=== PATIENT | female | born 1975 | race Caucasian/White ===

== ENCOUNTER 2023-10-20 10:08 | Outpatient (OUT) | payer SELFPAY ==
[2023-10-20 10:42] LABS: Basophils Percent Auto 0.7 % (0.2-2.0); Eosinophils Percent Auto 0.2 % (0.9-7.0); Hematocrit 39.9 % (36.0-48.0); Hemoglobin 12.7 g/dL (12.0-16.0); Immature Granulocytes Abs Auto 0.01 10^3/uL (0.00-0.03); Immature Granulocytes Pct Auto 0.2 % (0.0-0.5); Lymphocytes Absolute Auto 1.7 10^3/uL (1.2-3.8); Lymphocytes Percent Auto 30.8 % (20.5-60.0); Mean Corpuscular HGB Conc 31.8 g/dL (29.9-35.2); Mean Corpuscular Hemoglobin 27.1 pg (26.7-34.0); Mean Corpuscular Volume 85.3 fL (81.0-99.0); Mean Platelet Volume 9.4 fL (9.5-13.5); Monocytes Absolute Auto 0.3 10^3/uL (0.3-0.8); Monocytes Percent Auto 5.3 % (1.7-12.0); Neutrophils Absolute Auto 3.4 10^3/uL (1.4-6.5); Neutrophils Percent Auto 62.8 % (43.0-75.0); Platelet Count 307 10^3/uL (150-450); Red Blood Count 4.68 10^6/uL (4.20-5.40); Red Cell Distribution Width 13.9 % (11.0-15.0); White Blood Count 5.4 10^3/uL (4.0-11.0)
[2023-10-20 11:10] LABS: Alanine Aminotransferase 32 U/L (14-59); Albumin Globulin Ratio 0.9; Albumin Level 3.4 g/dL (3.4-5.0); Alkaline Phosphatase 111 U/L (46-116); Anion Gap 11.7; Aspartate Amino Transferase 17 U/L (15-37); BUN Creatinine Ratio 13.6; Bilirubin Total 0.1 mg/dL (0.2-1.0); Calcium 8.4 mg/dL (8.5-10.1); Carbon Dioxide 28.8 mmol/L (21.0-32.0); Chloride 105 mmol/L (98-107); Cholesterol 188 mg/dL (<=200); Estimated GFR (African America >60 (>=60); Estimated GFR (Non-African Ame >60 (>=60); Free T3 2.06 pg/mL (2.18-3.98); Glucose 107 mg/dL (74-106); HDL Cholesterol 47 mg/dL (40-60); Potassium 4.5 mmol/L (3.5-5.1); Sodium 141 mmol/L (136-145); Thyroid Stimulating Hormone 2.903 uIU/mL (0.358-3.740); Total Protein 7.4 g/dL (6.4-8.2); Triglycerides 160 mg/dL (<=150)
[2023-10-20 11:26] LABS: Estimated Average Glucose 123 mg/dL; Glycohemoglobin A1C 5.9 % (4.5-6.2)
== END 2023-10-20 10:09 | disposition home or self-care (01) ==
LOC: LAB 10:12
PROVIDERS: PCP Family Medicine; Visit Provider Family Medicine
DX: Z00.00 Encounter for general adult medical examination without abnormal findings (principal); E78.5 Hyperlipidemia, unspecified; R73.09 Other abnormal glucose; Z12.12 Encounter for screening for malignant neoplasm of rectum; D64.9 Anemia, unspecified
CPT/HCPCS: 36415; 80053; 80061; 83036; 83540; 84436; 84443; 84481; 85025

== ENCOUNTER 2024-10-19 09:13 | Outpatient (OUT) | payer BC, SELFPAY ==
--- OUTSIDE RECORDS SUMMARY | 2024-10-19 09:24 | XMS_ITS | CCD ---
Author Organization [facility] CliniSyfl Care Team Providers Care Bi Data Modeler Name Role Phone PHYSICIAN, DEFAULT Unavailable Unavailable PHYSICIAN, DEFAULT Unavailable Unavailable BINU, DR POZO Admitting Unavailable BINU, DR OPZO Attending Unavailable JULIOY, DR POZO Primary Care Unavailable BINU, DR POZO Primary Care Unavailable BARI, GINNY Admitting Unavailable MYAH HURTADO Consulting Unavailable BARI, GINNY Attending Unavailable ANDREW HARRY Consulting Unavailable BARI, GINNY Attending Unavailable KYARA, DR MARYLIN Ruiz Consulting Unavailable GINNY CANDELARIA Admitting Unavailable BINU, DR POZO Primary Care Unavailable GINNY CANDELARIA Consulting Unavailable BINU, DR POZO Primary Care Unavailable BINU, DR POZO Admitting Unavailable HOY, DR POZO Attending Unavailable HOY, DR POZO Consulting Unavailable JULIOY, DR POZO Admitting Unavailable HOY, DR POZO Attending Unavailable HOY, DR POZO Consulting Unavailable BINU, DR POZO Primary Care Unavailable Allergies Allergy Classification Reported Allergen(s) Allergy Type Date of Onset Reaction(s) Facility (2 sources) diazePAM Drug Allergy 06-10-2016 [facility] (2 sources) Iodine (And Iodine Containting Drugs) Drug allergy (disorder) 06-10-2016 [facility] (2 sources) Penicillins Drug allergy (disorder) 01-02-2016 [facility] Problems Problem Classification Problem Date Documented Date Episodic/Chronic Anxiety disorders (1 source) Anxiety disorder, unspecified; Translations: [ANXIETY DISORDER UNSPECIFIED] Onset: 3 Chronic Cardiac dysrhythmias (4 sources) Palpitations; Translations: [PALPITATIONS] Onset: 3 Episodic Conditions associated with dizziness or vertigo (1 source) Dizziness and giddiness; Translations: [DIZZINESS AND GIDDINESS] Onset: 3 Episodic Deficiency and other anemia (1 source) Anemia, unspecified; Translations: [ANEMIA UNSPECIFIED] Onset: 3 Episodic Diabetes mellitus without complication (1 source) Type 2 diabetes mellitus without complications; Translations: [TYPE 2 DM WITHOUT COMPLICATIONS] Onset: 3 Chronic Diabetes mellitus without complication (1 source) Other abnormal glucose; Translations: [OTHER ABNORMAL GLUCOSE] Onset: 3 Episodic Disorders of lipid metabolism (1 source) Pure hypercholesterolemia, unspecified; Translations: [PURE HYPERCHOLESTEROLEMIA UNSPEC] Onset: 3 Chronic Menopausal disorders (1 source) Hormone replacement therapy; Translations: [HORMONE REPLACEMENT THERAPY] Onset: 3 Episodic Nausea and vomiting (1 source) Nausea with vomiting, unspecified; Translations: [NAUSEA WITH VOMITING UNSPECIFIED] Onset: 3 Episodic Other aftercare (1 source) 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; Translations: [SENIOR CARE USE ORAL HYPOGLYCEMIC DX] Onset: 3 Episodic Other aftercare (1 source) Other alf (current) drug therapy; Translations: [OTH RESPIRATORY MANAGER CURRENT DRUG THERAPY] Onset: 3 Episodic Other nervous system disorders (1 source) Carpal tunnel syndrome, right upper limb; Translations: [CARPAL TUNNEL SYND RIGHT UPPER LIMB] Onset: 2 Chronic Other non-traumatic joint disorders (3 sources) Pain in right wrist; Translations: [PAIN IN RIGHT WRIST] Onset: 2 Episodic Other screening for suspected conditions (not mental disorders or infectious disease) (1 source) Encounter for screening for malignant neoplasm of rectum; Translations: [ENC SCREEN MALIG NEOPLASM RECTUM] Onset: 3 Episodic Substance-related disorders (1 source) Nicotine dependence, cigarettes, uncomplicated; Translations: [NICOTINE DEPEND CIGARETTES UNCOMP] Onset: 3 Chronic Thyroid disorders (1 source) Hypothyroidism, unspecified; Translations: [HYPOTHYROIDISM UNSPECIFIED] Onset: 3 Chronic Results Test Name Value Interpretation Reference Range Facil ity INSULINon 09-08-2022 Insulin 30.6 uIU/mL Critically high 2.6-24.9 [facility] Comment on above: Performed By: #### I NSULIN #### [facility] [address] [place] [address] Dr. Boogie Weiss CBC AUTO DIFFon 09-06-2022 BASO # 0.0 103/ul Normal 0.0-0.1 [facility] Comment on above: Performed By: #### I ISAAK #### [facility] [address] [place] [address] Dr. Boogie Weiss Basophils/100 WBC (Bld) 0.5 % Normal 0.2-2.0 [facility] Comment on above: Performed By: #### I ISAAK #### [facility] [address] [place] [address] Dr. Boogie Weiss EO # 0.0 103/ul Normal 0.0-0.7 [facility] Comment on above: Performed By: #### I ISAAK #### [facility] [address] [place] [address] Dr. Boogie Weiss Eosinophils/100 WBC (Bld) 0.2 % Critically low 0.9-7.0 [facility] Comment on above: Performed By: #### I ISAAK #### [facility] [address] [place] [address] Dr. Boogie Weiss Erythrocyte distribution width (RBC) [Ratio] 14.3 % Normal 11.0-15.0 [facility] Comment on above: Performed By: #### I ISAAK #### [facility] [address] [place] [address] Dr. Boogie Weiss Hematocrit (Bld) [Volume fraction] 39.0 % Normal 36.0-48.0 [facility] Comment on above: Performed By: #### I ISAAK #### [facility] [address] [place] [address] Dr. Boogie Weiss Hemoglobin (Bld) [Mass/Vol] 13.3 g/dL Normal 12.0-16.0 [facility] Comment on above: Performed By: #### I ISAAK #### [facility] [address] [place] [address] Dr. Boogie Weiss IG # 0.02 10e3/ul Normal 0.00-0.03 [facility] Comment on above: Performed By: #### I ISAAK #### [facility] [address] [place] [address] Dr. Boogie Weiss IG % 0.3 % Normal 0.0-0.5 [facility] Comment on above: Performed By: #### I ISAAK #### [facility] [address] [place] [address] Dr. Boogie Weiss LYMPH # 1.9 103/ul Normal 1.2-3.8 [facility] Comment on above: Performed By: #### I ISAAK #### [facility] [address] [place] [address] Dr. Boogie Weiss Lymphocytes/100 WBC (Bld) 30.2 % Normal 20.5-60.0 [facility] Comment on above: Performed By: #### I ISAAK #### [facility] [address] [place] [address] Dr. Boogie Weiss MANUAL DIFF REQ NO Normal [facility] Comment on above: Performed By: #### I ISAAK #### [facility] [address] [place] [address] Dr. Boogie Weiss MCH (RBC) [Entitic mass] 27.4 pg Normal 26.7-34.0 [facility] Comment on above: Performed By: #### I ISAAK #### [facility] [address] [place] [address] Dr. Boogie Weiss MCHC (RBC) [Mass/Vol] 34.1 g/dL Normal 29.9-35.2 [facility] Comment on above: Performed By: #### I ISAAK #### [facility] [address] [place] [address] Dr. Boogie Weiss MCV (RBC) [Entitic vol] 80.2 fL Critically low 81.0-99.0 [facility] Comment on above: Performed By: #### I ISAAK #### [facility] [address] [place] [address] Dr. Boogie Weiss MONO # 0.3 103/ul Normal 0.3-0.8 [facility] Comment on above: Performed By: #### I ISAAK #### [facility] [address] [place] [address] Dr. Boogie Weiss Monocytes/100 WBC (Bld) 4.8 % Normal 1.7-12.0 [facility] Comment on above: Performed By: #### I ISAAK #### [facility] [address] [place] [address] Dr. Boogie Weiss NEUT # 4.1 103/ul Normal 1.4-6.5 [facility] Comment on above: Performed By: #### I ISAAK #### [facility] [address] [place] [address] Dr. Boogie Weiss Neutrophils/100 WBC (Bld) 64.0 % Normal 43.0-75.0 [facility] Comment on above: Performed By: #### I ISAAK #### [facility] [address] [place] [address] Dr. Boogie Weiss Platelet mean volume (Bld) [Entitic vol] 9.3 fL Critically low 9.5-13.5 [facility] Comment on above: Performed By: #### I ISAAK #### [facility] [address] [place] [address] Dr. Boogie Weiss PLT 335 103/ul Normal 150-450 [facility] Comment on above: Performed By: #### I ISAAK #### [facility] [address] [place] [address] Dr. Boogie Weiss RBC 4.86 106/ul Normal 4.20-5.40 [facility] Comment on above: Performed By: #### I ISAAK #### [facility] [address] [place] [address] Dr. Boogie Weiss WBC 6.4 103/ul Normal 4.0-11.0 [facility] Comment on above: Performed By: #### I ISAAK #### [facility] [address] [place] [address] Dr. Boogie Weiss FREE THYROXINE INDEX T7on FTI 3.10 Normal 1.30-4.50 [facility] Comment on above: Performed By: #### A 1C #### [facility] [address] [place] [address] Dr. Boogie Weiss T3U 36.0 % Normal 30.0-39.0 [facility] Comment on above: Performed By: #### A 1C #### [facility] [address] [address] [address] Boogie Weiss T4 [Mass/Vol] 8.60 ug/dL Normal 4.80-13.[address] [facility] Comment on above: Performed By: #### A 1C #### [facility] [address] [address] [address] Boogie Weiss GLYCOHEMOGLOBIN A1Con 2022 ADA RECOMMENDATION SEE BELOW Normal [facility] Comment on above: Result Comment: ADA RECOMMENDED LIMIT 4.0 - 6.0 ADA THERAPEUTIC TARGET < 7.0 ACTION SUGGESTED > 7.0 Performed By: #### A 1C #### [facility] [address] [place] [address] Dr. Boogie Weiss Glucose [Mass/Vol] 128 mg/dL Normal [facility] Comment on above: Performed By: #### A 1C #### [facility] [address] [place] [address] Dr. Boogie Weiss HbA1c (Bld) [Mass fraction] 6.1 % Normal 4.5-6.2 [facility] Comment on above: Performed By: #### A 1C #### [facility] [address] [place] [address] Dr. Boogie Weiss IRONon 09-06-2022 Iron [Mass/Vol] 41.0 ug/dL Critically low 50.0-170.0 [facility] Comment on above: Performed By: #### I ISAAK #### [facility] [address] [place] [address] Dr. Boogie Weiss LIPID PROFILEon 09-06-2022 CHOL-HDL RATIO NORM SEE BELOW Normal [facility] Comment on above: Result Comment: 3.3 - 4.4 LOW RISK 4.4 - 7.1 AVERAGE RISK 7.1 - 11.0 MODERATE RISK >11.0 HIGH RISK Performed By: #### L IPID, TSH, T7, CMP #### [facility] [address] [place] [address] Dr. Boogie Weiss Cholesterol [Mass/Vol] 141 mg/dL Normal <=200 [facility] Comment on above: Performed By: #### L IPID, TSH, T7, CMP #### [facility] [address] [address] [address] Boogie Weiss Cholesterol in HDL [Mass/Vol] 37 mg/dL Critically low 40-60 [facility] Comment on above: Performed By: #### L IPID, TSH, T7, CMP #### [facility] [address] [address] [address] Boogie Weiss Cholesterol in LDL [Mass/Vol] 67.0 mg/dL Normal [facility] Comment on above: Performed By: #### L IPID, TSH, T7, CMP #### [facility] [address] [address] [address] Boogie Weiss Cholesterol.total/Cho lesterol in HDL [Mass ratio] 3.8 {ratio} Normal [facility] Comment on above: Performed By: #### L IPID, TSH, T7, CMP #### [facility] [address] [address] [address] Boogie Weiss HDL NORMAL > or = 60 mg/dl - LOW CARDIOVASCULAR RISK <40 mg/dl - HIGH CARDIOVASCULAR RISK Normal [facility] Comment on above: Performed By: #### L IPID, TSH, T7, CMP #### [facility] [address] [address] [address] Boogie Weiss LDL CALC NORMAL SEE BELOW Normal [facility] Comment on above: Result Comment: <100 mg/dl OPTIMAL 100 - 129 mg/dl NEAR OR ABOVE OPTIMAL 130 - 159 mg/dl BORDERLINE HIGH 160 - 189 mg/dl HIGH >190 mg/dl VERY HIGH Performed By: #### L IPID, TSH, T7, CMP #### [facility] [address] [address] [address] Boogie Weiss Triglyceride [Mass/Vol] 185 mg/dL Critically high <=150 [facility] Comment on above: Performed By: #### L IPID, TSH, T7, CMP #### [facility] [address] [address] [address] Boogie Weiss VLDL CALC 37.0 mg/dL Normal [facility] Comment on above: Performed By: #### L IPID, TSH, T7, CMP #### [facility] [address] [address] [address] Boogie Weiss PROF 14(COMP METB)on 023 Albumin [Mass/Vol] 3.9 g/dL Normal 3.4-5.0 [facility] Comment on above: Performed By: #### A 1C #### [facility] [address] [place] [address] Dr. Boogie Weiss Albumin/Globulin [Mass ratio] 1.0 {ratio} Normal [facility] Comment on above: Performed By: #### A 1C #### [facility] [address] [place] [address] Dr. Boogie Weiss ALP [Catalytic activity/Vol] 100 U/L Normal 46-116 [facility] Comment on above: Performed By: #### A 1C #### [facility] [address] [place] [address] Dr. Boogie Weiss ALT [Catalytic activity/Vol] 43 U/L Normal 14-59 [facility] Comment on above: Performed By: #### A 1C #### [facility] [address] [place] [address] Dr. Boogie Weiss Anion gap [Moles/Vol] 11.9 mmol/L Normal [facility] Comment on above: Performed By: #### A 1C #### [facility] [address] [place] [address] Dr. Boogie Weiss AST [Catalytic activity/Vol] 18 U/L Normal 15-37 [facility] Comment on above: Performed By: #### A 1C #### [facility] [address] [place] [address] Dr. Boogie Weiss Bilirubin [Mass/Vol] 0.2 mg/dL Normal 0.2-1.0 [facility] Comment on above: Performed By: #### A 1C #### [facility] [address] [place] [address] Dr. Boogie Weiss Calcium [Mass/Vol] 9.2 mg/dL Normal 8.5-10.1 [facility] Comment on above: Performed By: #### A 1C #### [facility] [address] [address] [address] Boogie Weiss Chloride [Moles/Vol] 104 mmol/L Normal 98-107 [facility] Comment on above: Performed By: #### A 1C #### [facility] [address] [address] [address] Boogie Weiss CO2 [Moles/Vol] 29.5 mmol/L Normal 21.0-32.0 [facility] Comment on above: Performed By: #### A 1C #### [facility] [address] [address] [address] Boogie Weiss Creatinine [Mass/Vol] 0.85 mg/dL Normal 0.55-1.02 [facility] Comment on above: Performed By: #### A 1C #### [facility] [address] [place] [address] Dr. Boogie Weiss EGFR-AF [place]UR[place] AND [place]ER >60 Normal >=60 [facility] Comment on above: Performed By: #### A 1C #### [facility] [address] [place] [address] Dr. Boogie Weiss EGFR-NON AF TURKS AND [place] IS[place]ER >60 Normal >=60 [facility] Comment on above: Performed By: #### A 1C #### [facility] [address] [place] [address] Dr. Boogie Weiss Globulin (S) [Mass/Vol] 3.9 g/dL Normal [facility] Comment on above: Performed By: #### A 1C #### [facility] [address] [place] [address] Dr. Boogie Weiss Glucose [Mass/Vol] 104 mg/dL Normal 74-106 [facility] Comment on above: Performed By: #### A 1C #### [facility] [address] [place] [address] Dr. Boogie Weiss Potassium [Moles/Vol] 4.4 mmol/L Normal 3.5-5.1 [facility] Comment on above: Performed By: #### A 1C #### [facility] [address] [place] [address] Dr. Boogie Weiss Protein [Mass/Vol] 7.8 g/dL Normal 6.4-8.2 [facility] Comment on above: Performed By: #### A 1C #### [facility] [address] [place] [address] Dr. Boogie Weiss Sodium [Moles/Vol] 141 mmol/L Normal 136-145 [facility] Comment on above: Performed By: #### A 1C #### [facility] [address] [place] [address] Dr. Boogie Weiss Urea nitrogen [Mass/Vol] 16.0 mg/dL Normal 7.0-18.0 [facility] Comment on above: Performed By: #### A 1C #### [facility] [address] [place] [address] Dr. Boogie Weiss Urea nitrogen/Creatinine [Mass ratio] 18.8 mg/mg Normal [facility] Comment on above: Performed By: #### A 1C #### [facility] [address] [place] [address] Dr. Boogie Weiss TSHon 09-06-2022 TSH 2.565 uIU/mL Normal 0.358-3.740 [facility] Comment on above: Performed By: #### L IPID, TSH, T7, CMP #### [facility] [address] [place] [address] Dr. Boogie Weiss CBC AUTO DIFFon 09-02-2022 BASO # 0.0 103/ul Normal 0.0-0.1 [facility] Comment on above: Performed By: #### C BC #### [facility] [address] [place] [address] Dr. Boogie Weiss Basophils/100 WBC (Bld) 0.3 % Normal 0.2-2.0 [facility] Comment on above: Performed By: #### C BC #### [facility] [address] [place] [address] Dr. Boogie Weiss EO # 0.0 103/ul Normal 0.0-0.7 [facility] Comment on above: Performed By: #### C BC #### [facility] [address] [place] [address] Dr. Boogie Weiss Eosinophils/100 WBC (Bld) 0.1 % Critically low 0.9-7.0 [facility] Comment on above: Performed By: #### C BC #### [facility] [address] [place] [address] Dr. Boogie Weiss Erythrocyte distribution width (RBC) [Ratio] 14.5 % Normal 11.0-15.0 [facility] Comment on above: Performed By: #### C BC #### [facility] [address] [place] [address] Dr. Boogie Weiss Hematocrit (Bld) [Volume fraction] 39.7 % Normal 36.0-48.0 [facility] Comment on above: Performed By: #### C BC #### [facility] [address] [place] [address] Dr. Boogie Weiss Hemoglobin (Bld) [Mass/Vol] 13.2 g/dL Normal 12.0-16.0 [facility] Comment on above: Performed By: #### C BC #### [facility] [address] [place] [address] Dr. Boogie Weiss IG # 0.06 10e3/ul Critically high 0.00-0.03 [facility] Comment on above: Performed By: #### C BC #### [facility] [address] [place] [address] Dr. Boogie Weiss IG % 0.5 % Normal 0.0-0.5 [facility] Comment on above: Performed By: #### C BC #### [facility] [address] [place] [address] Dr. Boogie Weiss LYMPH # 1.3 103/ul Normal 1.2-3.8 [facility] Comment on above: Performed By: #### C BC #### [facility] [address] [place] [address] Dr. Boogie Weiss Lymphocytes/100 WBC (Bld) 10.9 % Critically low 20.5-60.0 [facility] Comment on above: Performed By: #### C BC #### [facility] [address] [address] [address] Boogie Weiss MANUAL DIFF REQ NO Normal [facility] Comment on above: Performed By: #### C BC #### [facility] [address] [place] [address] Dr. Boogie Weiss MCH (RBC) [Entitic mass] 28.4 pg Normal 26.7-34.0 [facility] Comment on above: Performed By: #### C BC #### [facility] [address] [place] [address] Dr. Boogie Weiss MCHC (RBC) [Mass/Vol] 33.2 g/dL Normal 29.9-35.2 [facility] Comment on above: Performed By: #### C BC #### [facility] [address] [place] [address] Dr. Boogie Weiss MCV (RBC) [Entitic vol] 85.4 fL Normal 81.0-99.0 [facility] Comment on above: Performed By: #### C BC #### [facility] [address] [place] [address] Dr. Boogie Weiss MONO # 0.2 103/ul Critically low 0.3-0.8 [facility] Comment on above: Performed By: #### C BC #### [facility] [address] [place] [address] Dr. Boogie Weiss Monocytes/100 WBC (Bld) 2.1 % Normal 1.7-12.0 [facility] Comment on above: Performed By: #### C BC #### [facility] [address] [place] [address] Dr. Boogie Weiss NEUT # 9.8 103/ul Critically high 1.4-6.5 [facility] Comment on above: Performed By: #### C BC #### [facility] [address] [place] [address] Dr. Boogie Weiss Neutrophils/100 WBC (Bld) 86.1 % Critically high 43.0-75.0 [facility] Comment on above: Performed By: #### C BC #### [facility] [address] [address] [address] Boogie Weiss Platelet mean volume (Bld) [Entitic vol] 9.7 fL Normal 9.5-13.5 [facility] Comment on above: Performed By: #### C BC #### [facility] [address] [address] [address] Boogie Weiss PLT 351 103/ul Normal 150-450 [facility] Comment on above: Performed By: #### C BC #### [facility] [address] [address] [address] Boogie Weiss RBC 4.65 106/ul Normal 4.20-5.40 [facility] Comment on above: Performed By: #### C BC #### [facility] [address] [place] [address] Dr. Boogie Weiss WBC 11.4 103/ul Critically high 4.0-11.0 [facility] Comment on above: Performed By: #### C BC #### [facility] [address] [place] [address] Dr. Boogie Weiss D-DIMERon 09-02-2022 D-DIMER 0.28 mg/L FEU Normal <=0.59 [facility] Comment on above: Performed By: #### I ISAAK #### [facility] [address] [place] [address] Dr. Boogie Weiss D-DIMER COMMENTS SEE BELOW Normal [facility] Comment on above: Result Comment: Incr eases in D-Dimer concentration observed with thromboembolic events can be variable due to localization, size, and age of the thrombus. Therefore, a thromboembolic event cannot be diagnosed with certainty on the basis of the reference range. D-Dimers may also be elevated for a variety of disorders including: advanced age, , coronary disease, cancer, liver disease, infection, inflammation, hematoma, DIC, trauma, post-surgery, diabetes, thrombolytic or anticoagulant therapy, stress, and generalized hospitalization. Performed By: #### I ISAAK #### [facility] [address] [place] [address] Dr. Boogie Weiss PROF 14(COMP METB)on 023 Albumin [Mass/Vol] 4.0 g/dL Normal 3.4-5.0 [facility] Comment on above: Performed By: #### C FAISAL HSTROPN, TSH #### [facility] [address] [place] [address] Dr. Boogie Weiss Albumin/Globulin [Mass ratio] 1.0 {ratio} Normal [facility] Comment on above: Performed By: #### C FAISAL HSTROPN, TSH #### [facility] [address] [place] [address] Dr. Boogie Weiss ALP [Catalytic activity/Vol] 106 U/L Normal 46-116 [facility] Comment on above: Performed By: #### C ESHA MALONETROPN, TSH #### [facility] [address] [place] [address] Dr. Boogie Weiss ALT [Catalytic activity/Vol] 38 U/L Normal 14-59 [facility] Comment on above: Performed By: #### C FAISAL HSTROPN, TSH #### [facility] [address] [place] [address] Dr. Boogie Weiss Anion gap [Moles/Vol] 13.9 mmol/L Normal [facility] Comment on above: Performed By: #### C FAISAL HSTROPN, TSH #### [facility] [address] [place] [address] Dr. Boogie Weiss AST [Catalytic activity/Vol] 22 U/L Normal 15-37 [facility] Comment on above: Performed By: #### C FAISAL HSTROPN, TSH #### [facility] [address] [place] [address] Dr. Boogie Weiss Bilirubin [Mass/Vol] 0.3 mg/dL Normal 0.2-1.0 [facility] Comment on above: Performed By: #### C FAISAL HSTROPN, TSH #### [facility] [address] [place] [address] Dr. Boogie Weiss Calcium [Mass/Vol] 9.0 mg/dL Normal 8.5-10.1 [facility] Comment on above: Performed By: #### C FAISAL HSTROPN, TSH #### [facility] [address] [address] [address] Boogie Weiss Chloride [Moles/Vol] 102 mmol/L Normal 98-107 [facility] Comment on above: Performed By: #### C MP, HSTROPN, TSH #### [facility] [address] [address] [address] Boogie Weiss CO2 [Moles/Vol] 25.1 mmol/L Normal 21.0-32.0 [facility] Comment on above: Performed By: #### C MP, HSTROPN, TSH #### [facility] [address] [address] [address] Boogie Weiss Creatinine [Mass/Vol] 0.91 mg/dL Normal 0.55-1.02 [facility] Comment on above: Performed By: #### C MP, HSTROPN, TSH #### [facility] [address] [address] [address] Boogie Weiss EGFR-AF TURKS AND CAICOS ISLANDER >60 Normal >=60 [facility] Comment on above: Performed By: #### C MP, HSTROPN, TSH #### [facility] [address] [address] [address] Boogie Weiss EGFR-NON AF TURKS AND CAICOS ISLANDER >60 Normal >=60 [facility] Comment on above: Performed By: #### C MP, HSTROPN, TSH #### [facility] [address] [address] [address] Boogie Weiss Globulin (S) [Mass/Vol] 4.0 g/dL Normal [facility] Comment on above: Performed By: #### C MP, HSTROPN, TSH #### [facility] [address] [address] [address] Boogie Weiss Glucose [Mass/Vol] 105 mg/dL Normal 74-106 [facility] Comment on above: Performed By: #### C MP, HSTROPN, TSH #### [facility] [address] [address] [address] Boogie Weiss Potassium [Moles/Vol] 4.0 mmol/L Normal 3.5-5.1 [facility] Comment on above: Performed By: #### C MP HSTROPN, TSH #### [facility] [address] [place] [address] Dr. Boogie Weiss Protein [Mass/Vol] 8.0 g/dL Normal 6.4-8.2 [facility] Comment on above: Performed By: #### C MP HSTROPN, TSH #### [facility] [address] [place] [address] Dr. Boogie Weiss Sodium [Moles/Vol] 137 mmol/L Normal 136-145 [facility] Comment on above: Performed By: #### C FAISAL HSTROPN, TSH #### [facility] [address] [place] [address] Dr. Boogie Weiss Urea nitrogen [Mass/Vol] 15.0 mg/dL Normal 7.0-18.0 [facility] Comment on above: Performed By: #### C FAISAL HSTROPN, TSH #### [facility] [address] [place] [address] Dr. Boogie Weiss Urea nitrogen/Creatinine [Mass ratio] 16.5 mg/mg Normal [facility] Comment on above: Performed By: #### C FAISAL HSTROPN, TSH #### [facility] [address] [place] [address] Dr. Boogie Weiss TROPONIN, HIGH SENSITIVITYon 09-02-2022 HSTROP 6.6 pg/mL Normal 4.0-51.3 [facility] Comment on above: Result Comment: CUT- OFF POINTS HAVE BEEN ESTABLISHED BASED ON THE FOURTH UNIVERSAL DEFINITIONS OF MYOCARDIAL INFARCTION. THE UPPER REFERENCE LIMIT (URL) OF TROPONIN, DEFINED THE 99TH PERCENTILE OF cTnI DISTRIBUTION IN A REFERENCE POPULATION, HAS BEEN CONFIRMED THE DECISION THRESHOLD FOR LA DIAGNOSIS. Performed By: #### A 1C #### [facility] [address] [place] [address] Dr. Boogie Weiss HSTROP 7.7 pg/mL Normal 4.0-51.3 [facility] Comment on above: Result Comment: CUT- OFF POINTS HAVE BEEN ESTABLISHED BASED ON THE FOURTH UNIVERSAL DEFINITIONS OF MYOCARDIAL INFARCTION. THE UPPER REFERENCE LIMIT (URL) OF TROPONIN, DEFINED THE 99TH PERCENTILE OF cTnI DISTRIBUTION IN A REFERENCE POPULATION, HAS BEEN CONFIRMED THE DECISION THRESHOLD FOR LA DIAGNOSIS. Performed By: #### C GURU MALONE, TSH #### [facility] [address] [place] [address] Dr. Boogie Weiss TSHon 09-02-2022 TSH 4.175 uIU/mL Critically high 0.358-3.740 [facility] Comment on above: Performed By: #### C GURU MALONE, TSH #### [facility] [address] [place] [address] Dr. Boogie Weiss XR CHEST 1 Von 09-02-2022 XR CHEST 1 V EXAM: XR CHEST 1 V at 1801 hours HISTORY: SHORTNESS OF BREATH COMPARISON: None. TECHNIQUE: AP upright portable chest x-ray FINDINGS: The study slightly limited by the patient's body habitus and technique. The heart is not enlarged and the vasculature is not distended. No acute infiltrate, effusion or pneumothorax is identified. The osseous structures are grossly intact. IMPRESSION: No apparent acute infiltrate or evidence of cardiac decompensation. Direct comparison with a previous study may be helpful in confirming the chronicity of these findings. Electronically authenticated by: ANDREW HARRY Date: 2022-09-02 18:42 Normal [facility] CBC AUTO DIFFon 12-26-2021 BASO # 0.0 103/ul Normal 0.0-0.1 [facility] Comment on above: Performed By: #### C BC #### [facility] [address] [place] [address] Dr. Boogie Weiss Basophils/100 WBC (Bld) 0.7 % Normal 0.2-2.0 [facility] Comment on above: Performed By: #### C BC #### [facility] [address] [place] [address] Dr. Boogie Weiss EO # 0.0 103/ul Normal 0.0-0.7 [facility] Comment on above: Performed By: #### C BC #### [facility] [address] [place] [address] Dr. Boogie Weiss Eosinophils/100 WBC (Bld) 0.4 % Critically low 0.9-7.0 [facility] Comment on above: Performed By: #### C BC #### [facility] [address] [place] [address] Dr. Boogie Weiss Erythrocyte distribution width (RBC) [Ratio] 13.7 % Normal 11.0-15.0 [facility] Comment on above: Performed By: #### C BC #### [facility] [address] [place] [address] Dr. Boogie Weiss Hematocrit (Bld) [Volume fraction] 41.1 % Normal 36.0-48.0 [facility] Comment on above: Performed By: #### C BC #### [facility] [address] [place] [address] Dr. Boogie Weiss Hemoglobin (Bld) [Mass/Vol] 13.2 g/dL Normal 12.0-16.0 [facility] Comment on above: Performed By: #### C BC #### [facility] [address] [place] [address] Dr. Boogie Weiss IG # 0.03 10e3/ul Normal 0.00-0.03 [facility] Comment on above: Performed By: #### C BC #### [facility] [address] [place] [address] Dr. Boogie Weiss IG % 0.6 % Critically high 0.0-0.5 [facility] Comment on above: Performed By: #### C BC #### [facility] [address] [place] [address] Dr. Boogie Weiss LYMPH # 1.8 103/ul Normal 1.2-3.8 [facility] Comment on above: Performed By: #### C BC #### [facility] [address] [place] [address] Dr. Boogie Weiss Lymphocytes/100 WBC (Bld) 33.5 % Normal 20.5-60.0 [facility] Comment on above: Performed By: #### C BC #### [facility] [address] [place] [address] Dr. Boogie Weiss MANUAL DIFF REQ NO Normal [facility] Comment on above: Performed By: #### C BC #### [facility] [address] [place] [address] Dr. Boogie Weiss MCH (RBC) [Entitic mass] 27.8 pg Normal 26.7-34.0 [facility] Comment on above: Performed By: #### C BC #### [facility] [address] [place] [address] Dr. Boogie Weiss MCHC (RBC) [Mass/Vol] 32.1 g/dL Normal 29.9-35.2 [facility] Comment on above: Performed By: #### C BC #### [facility] [address] [place] [address] Dr. Boogie Weiss MCV (RBC) [Entitic vol] 86.5 fL Normal 81.0-99.0 [facility] Comment on above: Performed By: #### C BC #### [facility] [address] [place] [address] Dr. Boogie Weiss MONO # 0.3 103/ul Normal 0.3-0.8 [facility] Comment on above: Performed By: #### C BC #### [facility] [address] [place] [address] Dr. Boogie Weiss Monocytes/100 WBC (Bld) 5.2 % Normal 1.7-12.0 [facility] Comment on above: Performed By: #### C BC #### [facility] [address] [place] [address] Dr. Boogie Weiss NEUT # 3.2 103/ul Normal 1.4-6.5 [facility] Comment on above: Performed By: #### C BC #### [facility] [address] [place] [address] Dr. Boogie Weiss Neutrophils/100 WBC (Bld) 59.6 % Normal 43.0-75.0 [facility] Comment on above: Performed By: #### C BC #### [facility] [address] [place] [address] Dr. Boogie Weiss Platelet mean volume (Bld) [Entitic vol] 9.1 fL Critically low 9.5-13.5 [facility] Comment on above: Performed By: #### C BC #### [facility] [address] [place] [address] Dr. Boogie Weiss PLT 309 103/ul Normal 150-450 [facility] Comment on above: Performed By: #### C BC #### [facility] [address] [address] [address] Boogie Weiss RBC 4.75 106/ul Normal 4.20-5.40 [facility] Comment on above: Performed By: #### C BC #### [facility] [address] [place] [address] Dr. Boogie Weiss WBC 5.4 103/ul Normal 4.0-11.0 [facility] Comment on above: Performed By: #### C BC #### [facility] [address] [place] [address] Dr. Boogie Weiss FREE T3on 12-26-2021 FREE T3 2.78 pg/mlL Normal 2.18-3.98 [facility] Comment on above: Performed By: #### A 1C #### [facility] [address] [place] [address] Dr. Boogie Weiss GLYCOHEMOGLOBIN A1Con 2021 ADA RECOMMENDATION SEE BELOW Normal [facility] Comment on above: Result Comment: ADA RECOMMENDED LIMIT 4.0 - 6.0 ADA THERAPEUTIC TARGET < 7.0 ACTION SUGGESTED > 7.0 Performed By: #### A 1C #### [facility] [address] [place] [address] Dr. Boogie Weiss Glucose [Mass/Vol] 120 mg/dL Normal [facility] Comment on above: Performed By: #### A 1C #### [facility] [address] [place] [address] Dr. Boogie Weiss HbA1c (Bld) [Mass fraction] 5.8 % Normal 4.5-6.2 [facility] Comment on above: Performed By: #### A 1C #### [facility] [address] [place] [address] Dr. Boogie Weiss LIPID PROFILEon 12-26-2021 CHOL-HDL RATIO NORM SEE BELOW Normal [facility] Comment on above: Result Comment: 3.3 - 4.4 LOW RISK 4.4 - 7.1 AVERAGE RISK 7.1 - 11.0 MODERATE RISK >11.0 HIGH RISK Performed By: #### A 1C #### [facility] [address] [place], [place] [address] Dr. Boogie Weiss Cholesterol [Mass/Vol] 201 mg/dL Critically high <=200 [facility] Comment on above: Performed By: #### A 1C #### [facility] [address] [place], [place] [address] Dr. Boogie Weiss Cholesterol in HDL [Mass/Vol] 44 mg/dL Normal 40-60 [facility] Comment on above: Performed By: #### A 1C #### [facility] [address] [address] [address] Boogie Weiss Cholesterol in LDL [Mass/Vol] 121.0 mg/dL Normal [facility] Comment on above: Performed By: #### A 1C #### [facility] [address] [address] [address] Boogie Weiss Cholesterol.total/Cho lesterol in HDL [Mass ratio] 4.6 {ratio} Normal [facility] Comment on above: Performed By: #### A 1C #### [facility] [address] [address] [address] Boogie Weiss HDL NORMAL > or = 60 mg/dl - LOW CARDIOVASCULAR RISK <40 mg/dl - HIGH CARDIOVASCULAR RISK Normal [facility] Comment on above: Performed By: #### A 1C #### [facility] [address] [address] [address] Boogie Weiss LDL CALC NORMAL SEE BELOW Normal [facility] Comment on above: Result Comment: <100 mg/dl OPTIMAL 100 - 129 mg/dl NEAR OR ABOVE OPTIMAL 130 - 159 mg/dl BORDERLINE HIGH 160 - 189 mg/dl HIGH >190 mg/dl VERY HIGH Performed By: #### A 1C #### [facility] [address] [address] [address] Boogie Weiss Triglyceride [Mass/Vol] 180 mg/dL Critically high <=150 [facility] Comment on above: Performed By: #### A 1C #### [facility] [address] [place] [address] Dr. Boogie Weiss VLDL CALC 36.0 mg/dL Normal [facility] Comment on above: Performed By: #### A 1C #### [facility] [address] [place] [address] Dr. Boogie Weiss PROF 14(COMP METB)on 022 Albumin [Mass/Vol] 3.8 g/dL Normal 3.4-5.0 [facility] Comment on above: Performed By: #### A 1C #### [facility] [address] [place] [address] Dr. Boogie Weiss Albumin/Globulin [Mass ratio] 0.9 {ratio} Normal [facility] Comment on above: Performed By: #### A 1C #### [facility] [address] [place] [address] Dr. Boogie Weiss ALP [Catalytic activity/Vol] 101 U/L Normal 46-116 [facility] Comment on above: Performed By: #### A 1C #### [facility] [address] [place] [address] Dr. Boogie Weiss ALT [Catalytic activity/Vol] 34 U/L Normal 14-59 [facility] Comment on above: Performed By: #### A 1C #### [facility] [address] [place] [address] Dr. Boogie Weiss Anion gap [Moles/Vol] 13.2 mmol/L Normal [facility] Comment on above: Performed By: #### A 1C #### [facility] [address] [place] [address] Dr. Boogie Weiss AST [Catalytic activity/Vol] 14 U/L Critically low 15-37 [facility] Comment on above: Performed By: #### A 1C #### [facility] [address] [place] [address] Dr. Boogie Weiss Bilirubin [Mass/Vol] 0.2 mg/dL Normal 0.2-1.0 [facility] Comment on above: Performed By: #### A 1C #### [facility] [address] [address] [address] Boogie Weiss Calcium [Mass/Vol] 9.2 mg/dL Normal 8.5-10.1 [facility] Comment on above: Performed By: #### A 1C #### [facility] [address] [address] [address] Boogie Weiss Chloride [Moles/Vol] 104 mmol/L Normal 98-107 [facility] Comment on above: Performed By: #### A 1C #### [facility] [address] [address] [address] Boogie Weiss CO2 [Moles/Vol] 27.2 mmol/L Normal 21.0-32.0 [facility] Comment on above: Performed By: #### A 1C #### [facility] [address] [place] [address] Dr. Boogie Weiss Creatinine [Mass/Vol] 1.06 mg/dL Critically high 0.55-1.02 [facility] Comment on above: Performed By: #### A 1C #### [facility] [address] [place] [address] Dr. Boogie Weiss EGFR-AF TURKS AND CAICOS ISLANDER >60 Normal >=60 [facility] Comment on above: Performed By: #### A 1C #### [facility] [address] [place] [address] Dr. Boogie Weiss EGFR-NON AF TURKS AND [place] ISLANDER 55 mL/min/1.73m2 Critically low >=60 [facility] Comment on above: Performed By: #### A 1C #### [facility] [address] [address] [address] Boogie Weiss Globulin (S) [Mass/Vol] 4.1 g/dL Normal [facility] Comment on above: Performed By: #### A 1C #### [facility] [address] [place] [address] Dr. Boogie Weiss Glucose [Mass/Vol] 113 mg/dL Critically high 74-106 [facility] Comment on above: Performed By: #### A 1C #### [facility] [address] [address] [address] Boogie Weiss Potassium [Moles/Vol] 4.4 mmol/L Normal 3.5-5.1 [facility] Comment on above: Performed By: #### A 1C #### [facility] [address] [address] [address] Boogie Wiess Protein [Mass/Vol] 7.9 g/dL Normal 6.4-8.2 [facility] Comment on above: Performed By: #### A 1C #### [facility] [address] [address] [address] Boogie Weiss Sodium [Moles/Vol] 140 mmol/L Normal 136-145 [facility] Comment on above: Performed By: #### A 1C #### [facility] [address] [place] [address] Dr. Boogie Weiss Urea nitrogen [Mass/Vol] 16.0 mg/dL Normal 7.0-18.0 [facility] Comment on above: Performed By: #### A 1C #### [facility] [address] [place] [address] Dr. Boogie Weiss Urea nitrogen/Creatinine [Mass ratio] 15.1 mg/mg Normal [facility] Comment on above: Performed By: #### A 1C #### [facility] [address] [place] [address] Dr. Boogie Weiss T4on 12-26-2021 T4 [Mass/Vol] 7.50 ug/dL Normal 4.80-13.[address] [facility] Comment on above: Performed By: #### A 1C #### [facility] [address] [address] [address] Boogie Weiss TSHon 12-26-2021 TSH 4.804 uIU/mL Critically high 0.358-3.740 [facility] Comment on above: Performed By: #### A 1C #### [facility] [address] [place] [address] Dr. Boogie Weiss TSH RANGE SEE BELOW Normal [facility] Comment on above: Result Comment: <0.3 4 UIU/ml HYPERTHYROID 0.34-5.60 UIU/ml EUTHYROID >5.60 UIU/ml HYPOTHYROID Performed By: #### A 1C #### [facility] [address] [address] [address] Boogie Weiss VITAMIN D 25 OHon 12-26-2021 VIT D 25-OH 22.8 ng/mL Normal [facility] Comment on above: Performed By: #### A 1C #### [facility] [address] [address] [address] Boogie Weiss VIT D RANGES SEE BELOW Normal [facility] Comment on above: Result Comment: <20 ng/mL Vit D deficient 20 - <30 ng/mL Vit D insufficient 30 - 100 ng/mL Vit D sufficient >100 ng/mL Potential Toxicity Performed By: #### A 1C #### [facility] [address] [place] [address] Dr. Boogie Weiss Encounters Encounter Date Encounter Type Care Provider Facility Start: 09-06-2022 End: 09-07-[address] SÁNCHEZ SCHMID Facility:[facility] Start: 09-02-2022 End: 09-02-[address] SÁNCHEZ SCHMID Facility:[facility] Start: 07-17-2022 End: 07-17-2022 ambulatory GINNY CANDELARIA Facility:[facility] Start: 01-09-[address] SÁNCHEZ SCHMID Facility :[facility] Start: 01-01-2022 Encounter for genera l adult medical examination without abnormal findings DR SÁNCHEZ SCHMID [facility] Start: 12-26-2021 End: 12-27-[address] SÁNCHEZ SCHMID Facility:[facility] Start: 12-26-2021 End: 12-27-2021 Encounter for general adult medical examination without abnormal findings DR SÁNCHEZ SCHMID Facility:[facility] Start: 05-12-2017 End: 05-13-2017 Ambulatory DEFAULT PHYSICIAN Facility:[facility] Payers Date Payer Category Payer Unknown [id number] 2.16.84 [id number] 1975 Unknown [id number] 2.16.84 [id number] 1973 Unknown [id number] 2.16.84 [id number] 1973 Unknown [id number] 2.16.84 [id number] 1973 Unknown [id number] 2.16.84 [id number] 1961 Self-pay 1961 Unknown [id number] Unknown Clinical Note 07-17-2022 Note Date & Type Note Facility 07-17-2022 Note PROCEDURE: XR WRIST RT MIN 3 V COMPARISON: None. HISTORY: Pain FINDINGS: BONES:No acute fracture or dislocation. Minimal degenerative changes with marginal osteophyte formation SOFT TISSUES:Negative. No visible soft tissue swelling. EFFUSION:None visible. OTHER: Negative. IMPRESSION: Minimal degenerative changes Electronically authenticated by: MARYLIN SPARROW Date: 2022-07-17 09:52 [facility] Summary Purpose Family History No Family History Records FoundNo Family History Records Found Advance Directives No Advanced Directives Records FoundNo Advanced Directives Records Found Additional Source Comments INFORMATION SOURCE (unrecogn ized section and content) DATE CREATED AUTHOR 02/03/2018 [facility] DATE CREATED AUTHOR AUTHOR'S ORGANIZ ATION 09/10/2022 [facility] FOR RECORDS PERTAINING TO PATIENTS WHO ARE OR HAVE BEEN ENROLLED IN A CHEMICAL DEPENDENCY/SUBSTANCEABUSE PROGRAM, SOME INFORMATION MAY BE OMITTED. This clinical summary was aggregated from multiple sources. Caution should be exercised in using it in the provision of clinical care. This summary normalizes information from multiple sources, and as a consequence, information in this document may materially change the coding, format and clinical context of patient data. In addition, data may be omitted in some cases. CLINICAL DECISIONS SHOULD BE BASED ON THE PRIMARY CLINICAL RECORDS. [employer] provides no warranty or guarantee of the accuracy or completeness of information in this document.
[2024-10-19 09:30] LABS: Basophils Percent Auto 0.8 % (0.2-2.0); Hematocrit 40.4 % (36.0-48.0); Hemoglobin 13.2 g/dL (12.0-16.0); Immature Granulocytes Abs Auto 0.01 10^3/uL (0.00-0.03); Immature Granulocytes Pct Auto 0.2 % (0.0-0.5); Lymphocytes Absolute Auto 1.8 10^3/uL (1.2-3.8); Lymphocytes Percent Auto 34.5 % (20.5-60.0); Mean Corpuscular HGB Conc 32.7 g/dL (29.9-35.2); Mean Corpuscular Hemoglobin 27.5 pg (26.7-34.0); Mean Corpuscular Volume 84.2 fL (81.0-99.0); Mean Platelet Volume 9.4 fL (9.5-13.5); Monocytes Absolute Auto 0.3 10^3/uL (0.3-0.8); Monocytes Percent Auto 5.8 % (1.7-12.0); Neutrophils Absolute Auto 3.1 10^3/uL (1.4-6.5); Neutrophils Percent Auto 58.7 % (43.0-75.0); Platelet Count 312 10^3/uL (150-450); White Blood Count 5.2 10^3/uL (4.0-11.0)
[2024-10-19 09:41] LABS: Estimated Average Glucose 128 mg/dL; Glycohemoglobin A1C 6.1 % (4.5-6.2)
[2024-10-19 10:23] LABS: Alanine Aminotransferase 28 U/L (14-59); Albumin Globulin Ratio 0.9; Albumin Level 3.6 g/dL (3.4-5.0); Alkaline Phosphatase 113 U/L (46-116); Anion Gap 13.1; Aspartate Amino Transferase 15 U/L (15-37); BUN Creatinine Ratio 15.2; Bilirubin Total 0.2 mg/dL (0.2-1.0); Calcium 8.9 mg/dL (8.5-10.1); Carbon Dioxide 27.6 mmol/L (21.0-32.0); Chloride 105 mmol/L (98-107); Chol HDL Ratio 3.5; Cholesterol 185 mg/dL (<=200); Estimated GFR (African America >60 (>=60 mL/min/1.73m^2); Estimated GFR (Non-African Ame >60 (>=60 mL/min/1.73m^2); Free T3 2.22 pg/mL (2.18-3.98); Glucose 114 mg/dL (74-106); HDL Cholesterol 53 mg/dL (40-60); LDL Cholesterol Calculated 104.4 mg/dL; Potassium 4.7 mmol/L (3.5-5.1); Sodium 141 mmol/L (136-145); Thyroid Stimulating Hormone 3.316 uIU/mL (0.358-3.740); Total Protein 7.6 g/dL (6.4-8.2); Triglycerides 138 mg/dL (<=150); VLDL CHOLESTEROL 27.6 mg/dL
== END 2024-10-19 09:14 | disposition home or self-care (01) ==
LOC: LAB 09:15
PROVIDERS: PCP Family Medicine; Visit Provider Family Medicine
DX: Z00.00 Encounter for general adult medical examination without abnormal findings (principal)
CPT/HCPCS: 36415; 80053; 80061; 83036; 84436; 84443; 84481; 85025

== ENCOUNTER 2024-11-02 13:15 | Outpatient (OUT) | payer BC, SELFPAY ==
--- NOTE | 2024-11-02 13:17 | MM_ITS ---
Patient Name: LAURYN SAMPSON MR#: [id number] : 1975 Exam Date: 11/02/2024 Ordering Doctor: DR Demond Winter . RADIOLOGY REPORT PROCEDURE: MM TOMOSYNTHESIS SCREENING BI COMPARISON: MG MAMM SCREEN 3D ADEEL CAD, 01/03/2021. MG MAMM ADEEL SCRN W CAD DIG, 09/20/2015. MG MAMM ADEEL SCRN W CAD DIG, 05/03/2014. MG MAMM ADEEL SCRN W CAD DIG, 08/07/2008. INDICATIONS: screening for malignant neoplasm of breast Calculator Name NCI Breast Cancer Risk Assessment Tool 5 Year Breast Cancer Risk 0.70% Lifetime Breast Cancer Risk 6.40% Personal Breast Cancer No Personal Ovarian Cancer No Treatments None Family Cancers Grandmother-maternal with breast cancer at age ~50; Aunt-maternal with breast cancer at age ~50. LOCATION: [facility] BREAST COMPOSITION: There are scattered areas of fibroglandular density. FINDINGS: RIGHT BREAST: No significant suspicious finding. LEFT BREAST: No significant suspicious finding. DIAGNOSTIC CATEGORY 1--NEGATIVE. RECOMMENDATIONS: ROUTINE MAMMOGRAM AND CLINICAL EVALUATION IN 12 MONTHS. PLEASE NOTE: A NORMAL MAMMOGRAM DOES NOT EXCLUDE THE POSSIBILITY OF BREAST CANCER. A CLINICALLY SUSPICIOUS PALPABLE LUMP SHOULD BE BIOPSIED. Dictated by: Robin Amato DO on 11/03/2024 at 15:38 Approved by: Robin Amato DO on 11/03/2024 at 15:39
--- OUTSIDE RECORDS SUMMARY | 2024-11-02 13:32 | XMS_ITS | CCD ---
Author Organization [facility] Care Team Providers Care Savings Counselor Name Role Phone PHYSICIAN, DEFAULT Unavailable Unavailable PHYSICIAN, DEFAULT Unavailable Unavailable BINU, DR POZO Admitting Unavailable BINU, DR POZO Attending Unavailable JULIOY, DR POZO Primary Care [...] (2 sources) [email or web address] Drug Allergy 06-10-2016 [facility] (2 sources) Iodine (And Iodine Containting Drugs) Drug allergy (disorder) 06-10-2016 [facility] (2 sources) Penicillins Drug allergy (disorder) 01-02-2016 [facility] Problems Problem Classification Problem Date [...] Onset: 3 Episodic Other aftercare (1 source) 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 Boogie Wiess CBC AUTO DIFFon 09-06-2022 BASO # 0.0 103/ul Normal 0.0-0.1 [facility] Comment on above: Performed By: #### I ISAAK #### [facility] [address] [place] [address] Dr. Boogie Weiss Basophils/100 WBC (Bld) 0.5 % Normal 0.2-2.0 [facility] Comment on above: Performed By: #### I IASAK #### [facility] [address] [place] [address] Dr. Boogie Weiss EO # 0.0 103/ul Normal 0.0-0.7 [facility] Comment on above: Performed By: #### I ISAAK #### [facility] [address] [place] [address] Dr. Boogie Weiss Eosinophils/100 WBC (Bld) 0.2 % Critically low 0.9-7.0 [facility] Comment on above: Performed By: #### I ISAAK #### [facility] [address] [place] [address] Dr. Boogie Weiss Erythrocyte distribution width (RBC) [Ratio] 14.3 % Normal 11.0-15.0 [facility] Comment on above: Performed By: #### I ISAAK #### [facility] [address] [place] [address] Dr. Boogie Weiss Hematocrit (Bld) [Volume fraction] 39.0 % Normal 36.0-48.0 [facility] Comment on above: Performed By: #### I ISAAK #### [facility] [address] [place] [address] Dr. Boogie Weiss Hemoglobin (Bld) [Mass/Vol] 13.3 g/dL Normal 12.0-16.0 [facility] Comment on above: Performed By: #### I ISAAK #### [facility] [address] [place] [address] Dr. Boogie Weiss IG # 0.02 10e3/ul Normal 0.00-0.03 [facility] Comment on above: Performed By: #### I ISAAK #### [facility] [address] [place] [address] Dr. Boogie Weiss IG % 0.3 % Normal 0.0-0.5 [facility] Comment on above: Performed By: #### I ISAAK #### [facility] [address] [place] [address] Dr. Boogie Weiss LYMPH # 1.9 103/ul Normal 1.2-3.8 [facility] Comment on above: Performed By: #### I ISAAK #### [facility] [address] [place] [address] Dr. Boogie Weiss Lymphocytes/100 WBC (Bld) 30.2 % Normal 20.5-60.0 [facility] Comment on above: Performed By: #### I ISAAK #### [facility] [address] [place] [address] Dr. Boogie Weiss MANUAL DIFF REQ NO Normal [facility] Comment on above: Performed By: #### I ISAAK #### [facility] [address] [place] [address] Dr. Boogie Weiss MCH (RBC) [Entitic mass] 27.4 pg Normal 26.7-34.0 [facility] Comment on above: Performed By: #### I ISAAK #### [facility] [address] [place] [address] Dr. Boogie Weiss MCHC (RBC) [Mass/Vol] 34.1 g/dL Normal 29.9-35.2 [facility] Comment on above: Performed By: #### I ISAAK #### [facility] [address] [place] [address] Dr. Boogie Weiss MCV (RBC) [Entitic vol] 80.2 fL Critically low 81.0-99.0 [facility] Comment on above: Performed By: #### I ISAAK #### [facility] [address] [place] [address] Dr. Boogie Weiss MONO # 0.3 103/ul Normal 0.3-0.8 [facility] Comment on above: Performed By: #### I ISAAK #### [facility] [address] [place] [address] Dr. Boogie Weiss Monocytes/100 WBC (Bld) 4.8 % Normal 1.7-12.0 [facility] Comment on above: Performed By: #### I ISAAK #### [facility] [address] [place] [address] Dr. Boogie Weiss NEUT # 4.1 103/ul Normal 1.4-6.5 [facility] Comment on above: Performed By: #### I ISAAK #### [facility] [address] [place] [address] Dr. Boogie Weiss Neutrophils/100 WBC (Bld) 64.0 % Normal 43.0-75.0 [facility] Comment on above: Performed By: #### I ISAAK #### [facility] [address] [place] [address] Dr. Boogie Weiss Platelet mean volume (Bld) [Entitic vol] 9.3 fL Critically low 9.5-13.5 [facility] Comment on above: Performed By: #### I ISAAK #### [facility] [address] [place] [address] Dr. Boogie Weiss PLT 335 103/ul Normal 150-450 [facility] Comment on above: Performed By: #### I ISAAK #### [facility] [address] [place] [address] Dr. Boogie Weiss RBC 4.86 106/ul Normal 4.20-5.40 [facility] Comment on above: Performed By: #### I ISAAK #### [facility] [address] [place] [address] Dr. Boogie Weiss WBC 6.4 103/ul Normal 4.0-11.0 [facility] Comment on above: Performed By: #### I ISAAK #### [facility] [address] [place] [address] Dr. Boogie Weiss FREE THYROXINE INDEX T7on FTI 3.10 Normal 1.30-4.50 [facility] Comment on above: Performed By: #### A 1C #### [facility] [address] [place] [address] Dr. Boogie Weiss T3U 36.0 % Normal 30.0-39.0 [facility] Comment on above: Performed By: #### A 1C #### [facility] [address] [address] [address] Boogie Weiss T4 [Mass/Vol] 8.60 ug/dL Normal 4.80-13.90 [facility] Comment on above: Performed By: #### A 1C #### [facility] [address] [address] [address] Boogie Weiss GLYCOHEMOGLOBIN A1Con 2022 ADA RECOMMENDATION SEE BELOW Normal [facility] Comment on above: Result Comment: ADA RECOMMENDED LIMIT 4.0 - 6.0 ADA THERAPEUTIC TARGET < 7.0 ACTION SUGGESTED > 7.0 Performed By: #### A 1C #### [facility] [address] [place] [address] Dr. Boogie Weiss Glucose [Mass/Vol] 128 mg/dL Normal [facility] Comment on above: Performed By: #### A 1C #### [facility] [address] [place] [address] Dr. Boogie Weiss HbA1c (Bld) [Mass fraction] 6.1 % Normal 4.5-6.2 [facility] Comment on above: Performed By: #### A 1C #### [facility] [address] [place] [address] Dr. Boogie Weiss IRONon 09-06-2022 Iron [Mass/Vol] 41.0 ug/dL Critically low 50.0-170.0 [facility] Comment on above: Performed By: #### I ISAAK #### [facility] [address] [place] [address] Dr. Boogie Weiss LIPID PROFILEon 09-06-2022 CHOL-HDL RATIO NORM SEE BELOW Normal [facility] Comment on above: Result Comment: 3.3 - 4.4 LOW RISK 4.4 - 7.1 AVERAGE RISK 7.1 - 11.0 MODERATE RISK >11.0 HIGH RISK Performed By: #### L IPID, TSH, T7, CMP #### [facility] [address] [place] [address] Dr. Boogie Weiss Cholesterol [Mass/Vol] 141 mg/dL Normal <=200 [facility] Comment on above: Performed By: #### L IPID, TSH, T7, CMP #### [facility] [address] [address] [address] Boogie Weiss Cholesterol in HDL [Mass/Vol] 37 mg/dL Critically low 40-60 [facility] Comment on above: Performed By: #### L IPID, TSH, T7, CMP #### [facility] [address] [address] [address] Boogie Weiss Cholesterol in LDL [Mass/Vol] 67.0 mg/dL Normal [facility] Comment on above: Performed By: #### L IPID, TSH, T7, CMP #### [facility] [address] [address] [address] Boogie Weiss Cholesterol.total/Cho lesterol in HDL [Mass ratio] 3.8 {ratio} Normal [facility] Comment on above: Performed By: #### L IPID, TSH, T7, CMP #### [facility] [address] [address] [address] Boogie Weiss HDL NORMAL > or = 60 mg/dl - LOW CARDIOVASCULAR RISK <40 mg/dl - HIGH CARDIOVASCULAR RISK Normal [facility] Comment on above: Performed By: #### L IPID, TSH, T7, CMP #### [facility] [address] [address] [address] Boogie Weiss LDL CALC NORMAL SEE BELOW Normal [facility] Comment on above: Result Comment: <100 mg/dl OPTIMAL 100 - 129 mg/dl NEAR OR ABOVE OPTIMAL 130 - 159 mg/dl BORDERLINE HIGH 160 - 189 mg/dl HIGH >190 mg/dl VERY HIGH Performed By: #### L IPID, TSH, T7, CMP #### [facility] [address] [address] [address] Boogie Weiss Triglyceride [Mass/Vol] 185 mg/dL Critically high <=150 [facility] Comment on above: Performed By: #### L IPID, TSH, T7, CMP #### [facility] [address] [address] [address] Boogie Wesis VLDL CALC 37.0 mg/dL Normal [facility] Comment on above: Performed By: #### L IPID, TSH, T7, CMP #### [facility] [address] [address] [address] Boogie Weiss PROF 14(COMP METB)on 023 Albumin [Mass/Vol] 3.9 g/dL Normal 3.4-5.0 [facility] Comment on above: Performed By: #### A 1C #### [facility] [address] [place] [address] Dr. Boogie Weiss Albumin/Globulin [Mass ratio] 1.0 {ratio} Normal [facility] Comment on above: Performed By: #### A 1C #### [facility] [address] [place] [address] Dr. Boogie Weiss ALP [Catalytic activity/Vol] 100 U/L Normal 46-116 [facility] Comment on above: Performed By: #### A 1C #### [facility] [address] [place] [address] Dr. Boogie Weiss ALT [Catalytic activity/Vol] 43 U/L Normal 14-59 [facility] Comment on above: Performed By: #### A 1C #### [facility] [address] [place] [address] Dr. Boogie Weiss Anion gap [Moles/Vol] 11.9 mmol/L Normal [facility] Comment on above: Performed By: #### A 1C #### [facility] [address] [place] [address] Dr. Boogie Weiss AST [Catalytic activity/Vol] 18 U/L Normal 15-37 [facility] Comment on above: Performed By: #### A 1C #### [facility] [address] [place] [address] Dr. Boogie Weiss Bilirubin [Mass/Vol] 0.2 mg/dL Normal 0.2-1.0 [facility] Comment on above: Performed By: #### A 1C #### [facility] [address] [place] [address] Dr. Boogie Weiss Calcium [Mass/Vol] 9.2 mg/dL Normal 8.5-10.1 [facility] Comment on above: Performed By: #### A 1C #### [facility] [address] [address] [address] Boogie Weiss Chloride [Moles/Vol] 104 mmol/L Normal 98-107 [facility] Comment on above: Performed By: #### A 1C #### [facility] [address] [address] [address] Boogie Weiss CO2 [Moles/Vol] 29.5 mmol/L Normal 21.0-32.0 [facility] Comment on above: Performed By: #### A 1C #### [facility] [address] [address] [address] Boogie Weiss Creatinine [Mass/Vol] 0.85 mg/dL Normal 0.55-1.02 [facility] Comment on above: Performed By: #### A 1C #### [facility] [address] [place] [address] Dr. Boogie Weiss EGFR-AF COMORAN >60 Normal >=60 [facility] Comment on above: Performed By: #### A 1C #### [facility] [address] [place] [address] Dr. Boogie Weiss EGFR-NON AF COMORAN >60 Normal >=60 [facility] Comment on above: Performed By: #### A 1C #### [facility] [address] [place] [address] Dr. Boogie Weiss Globulin (S) [Mass/Vol] 3.9 g/dL Normal [facility] Comment on above: Performed By: #### A 1C #### [facility] [address] [place] [address] Dr. Boogie Weiss Glucose [Mass/Vol] 104 mg/dL Normal 74-106 [facility] Comment on above: Performed By: #### A 1C #### [facility] [address] [place] [address] Dr. Boogie Weiss Potassium [Moles/Vol] 4.4 mmol/L Normal 3.5-5.1 [facility] Comment on above: Performed By: #### A 1C #### [facility] [address] [place] [address] Dr. Boogie Weiss Protein [Mass/Vol] 7.8 g/dL Normal 6.4-8.2 [facility] Comment on above: Performed By: #### A 1C #### [facility] [address] [place] [address] Dr. Boogie Weiss Sodium [Moles/Vol] 141 mmol/L Normal 136-145 [facility] Comment on above: Performed By: #### A 1C #### [facility] [address] [place] [address] Dr. Boogie Weiss Urea nitrogen [Mass/Vol] 16.0 mg/dL Normal 7.0-18.0 [facility] Comment on above: Performed By: #### A 1C #### [facility] [address] [place] [address] Dr. Boogie Weiss Urea nitrogen/Creatinine [Mass ratio] 18.8 mg/mg Normal [facility] Comment on above: Performed By: #### A 1C #### [facility] [address] [place] [address] Dr. Boogie Weiss TSHon 09-06-2022 TSH 2.565 uIU/mL Normal 0.358-3.740 [facility] Comment on above: Performed By: #### L IPID, TSH, T7, CMP #### [facility] [address] [place] [address] Dr. Boogie Weiss CBC AUTO DIFFon 09-02-2022 BASO # 0.0 103/ul Normal 0.0-0.1 [facility] Comment on above: Performed By: #### C BC #### [facility] [address] [place] [address] Dr. Boogie Weiss Basophils/100 WBC (Bld) 0.3 % Normal 0.2-2.0 [facility] Comment on above: Performed By: #### C BC #### [facility] [address] [place] [address] Dr. Boogie Weiss EO # 0.0 103/ul Normal 0.0-0.7 [facility] Comment on above: Performed By: #### C BC #### [facility] [address] [place] [address] Dr. Boogie Weiss Eosinophils/100 WBC (Bld) 0.1 % Critically low 0.9-7.0 [facility] Comment on above: Performed By: #### C BC #### [facility] [address] [place] [address] Dr. Boogie Weiss Erythrocyte distribution width (RBC) [Ratio] 14.5 % Normal 11.0-15.0 [facility] Comment on above: Performed By: #### C BC #### [facility] [address] [place] [address] Dr. Boogie Weiss Hematocrit (Bld) [Volume fraction] 39.7 % Normal 36.0-48.0 [facility] Comment on above: Performed By: #### C BC #### [facility] [address] [place] [address] Dr. Boogie Weiss Hemoglobin (Bld) [Mass/Vol] 13.2 g/dL Normal 12.0-16.0 [facility] Comment on above: Performed By: #### C BC #### [facility] [address] [place] [address] Dr. Boogie Weiss IG # 0.06 10e3/ul Critically high 0.00-0.03 [facility] Comment on above: Performed By: #### C BC #### [facility] [address] [place] [address] Dr. Boogie Weiss IG % 0.5 % Normal 0.0-0.5 [facility] Comment on above: Performed By: #### C BC #### [facility] [address] [place] [address] Dr. Boogie Weiss LYMPH # 1.3 103/ul Normal 1.2-3.8 [facility] Comment on above: Performed By: #### C BC #### [facility] [address] [place] [address] Dr. Boogie Weiss Lymphocytes/100 WBC (Bld) 10.9 % Critically low 20.5-60.0 [facility] Comment on above: Performed By: #### C BC #### [facility] [address] [address] [address] Boogie Weiss MANUAL DIFF REQ NO Normal [facility] Comment on above: Performed By: #### C BC #### [facility] [address] [place] [address] Dr. Boogie Weiss MCH (RBC) [Entitic mass] 28.4 pg Normal 26.7-34.0 [facility] Comment on above: Performed By: #### C BC #### [facility] [address] [place] [address] Dr. Boogie Weiss MCHC (RBC) [Mass/Vol] 33.2 g/dL Normal 29.9-35.2 [facility] Comment on above: Performed By: #### C BC #### [facility] [address] [place] [address] Dr. Boogie Weiss MCV (RBC) [Entitic vol] 85.4 fL Normal 81.0-99.0 [facility] Comment on above: Performed By: #### C BC #### [facility] [address] [place] [address] Dr. Boogie Weiss MONO # 0.2 103/ul Critically low 0.3-0.8 [facility] Comment on above: Performed By: #### C BC #### [facility] [address] [place] [address] Dr. Boogie Weiss Monocytes/100 WBC (Bld) 2.1 % Normal 1.7-12.0 [facility] Comment on above: Performed By: #### C BC #### [facility] [address] [place] [address] Dr. Boogie Weiss NEUT # 9.8 103/ul Critically high 1.4-6.5 [facility] Comment on above: Performed By: #### C BC #### [facility] [address] [place] [address] Dr. Boogie Weiss Neutrophils/100 WBC (Bld) 86.1 % Critically high 43.0-75.0 [facility] Comment on above: Performed By: #### C BC #### [facility] [address] [address] [address] Boogie Weiss Platelet mean volume (Bld) [Entitic vol] 9.7 fL Normal 9.5-13.5 [facility] Comment on above: Performed By: #### C BC #### [facility] [address] [address] [address] Boogie Weiss PLT 351 103/ul Normal 150-450 [facility] Comment on above: Performed By: #### C BC #### [facility] [address] [address] [address] Boogie Weiss RBC 4.65 106/ul Normal 4.20-5.40 [facility] Comment on above: Performed By: #### C BC #### [facility] [address] [place] [address] Dr. Boogie Weiss WBC 11.4 103/ul Critically high 4.0-11.0 [facility] Comment on above: Performed By: #### C BC #### [facility] [address] [place] [address] Dr. Boogie Weiss D-DIMERon 09-02-2022 D-DIMER 0.28 mg/L FEU Normal <=0.59 [facility] Comment on above: Performed By: #### I ISAAK #### [facility] [address] [place] [address] Dr. Boogie Weiss D-DIMER COMMENTS SEE BELOW Normal [facility] Comment on above: Result Comment: Incr eases [...] hospitalization. Performed By: #### I ISAAK #### [facility] [address] [place] [address] Dr. Boogie Weiss PROF 14(COMP METB)on 023 Albumin [Mass/Vol] 4.0 g/dL Normal 3.4-5.0 [facility] Comment on above: Performed By: #### C FAISAL HSTROPN, TSH #### [facility] [address] [place] [address] Dr. Boogie Weiss Albumin/Globulin [Mass ratio] 1.0 {ratio} Normal [facility] Comment on above: Performed By: #### C FAISAL HSTROPN, TSH #### [facility] [address] [place] [address] Dr. Boogie Weiss ALP [Catalytic activity/Vol] 106 U/L Normal 46-116 [facility] Comment on above: Performed By: #### C ESHA MALONETROPN, TSH #### [facility] [address] [place] [address] Dr. Boogie Weiss ALT [Catalytic activity/Vol] 38 U/L Normal 14-59 [facility] Comment on above: Performed By: #### C FAISAL HSTROPN, TSH #### [facility] [address] [place] [address] Dr. Boogie Weiss Anion gap [Moles/Vol] 13.9 mmol/L Normal [facility] Comment on above: Performed By: #### C FAISAL HSTROPN, TSH #### [facility] [address] [place] [address] Dr. Boogie Weiss AST [Catalytic activity/Vol] 22 U/L Normal 15-37 [facility] Comment on above: Performed By: #### C FAISAL HSTROPN, TSH #### [facility] [address] [place] [address] Dr. Boogie Weiss Bilirubin [Mass/Vol] 0.3 mg/dL Normal 0.2-1.0 [facility] Comment on above: Performed By: #### C FAISAL HSTROPN, TSH #### [facility] [address] [place] [address] Dr. Boogie Weiss Calcium [Mass/Vol] 9.0 mg/dL Normal 8.5-10.1 [facility] Comment on above: Performed By: #### C FAISAL HSTROPN, TSH #### [facility] [address] [address] [address] Boogie Weiss Chloride [Moles/Vol] 102 mmol/L Normal 98-107 [facility] Comment on above: Performed By: #### C MP, HSTROPN, TSH #### [facility] [address] [address] [address] Boogie Weiss CO2 [Moles/Vol] 25.1 mmol/L Normal 21.0-32.0 [facility] Comment on above: Performed By: #### C MP, HSTROPN, TSH #### [facility] [address] [address] [address] Boogie Weiss Creatinine [Mass/Vol] 0.91 mg/dL Normal 0.55-1.02 [facility] Comment on above: Performed By: #### C MP, HSTROPN, TSH #### [facility] [address] [address] [address] Boogie Weiss EGFR-AF COMORAN >60 Normal >=60 [facility] Comment on above: Performed By: #### C MP, HSTROPN, TSH #### [facility] [address] [address] [address] Boogie Weiss EGFR-NON AF COMORAN >60 Normal >=60 [facility] Comment on above: Performed By: #### C MP, HSTROPN, TSH #### [facility] [address] [address] [address] Boogie Weiss Globulin (S) [Mass/Vol] 4.0 g/dL Normal [facility] Comment on above: Performed By: #### C MP, HSTROPN, TSH #### [facility] [address] [address] [address] Boogie Weiss Glucose [Mass/Vol] 105 mg/dL Normal 74-106 [facility] Comment on above: Performed By: #### C MP, HSTROPN, TSH #### [facility] [address] [address] [address] Boogie Weiss Potassium [Moles/Vol] 4.0 mmol/L Normal 3.5-5.1 [facility] Comment on above: Performed By: #### C MP HSTROPN, TSH #### [facility] [address] [place] [address] Dr. Boogie Weiss Protein [Mass/Vol] 8.0 g/dL Normal 6.4-8.2 [facility] Comment on above: Performed By: #### C MP HSTROPN, TSH #### [facility] [address] [place] [address] Dr. Boogie Weiss Sodium [Moles/Vol] 137 mmol/L Normal 136-145 [facility] Comment on above: Performed By: #### C FAISAL HSTROPN, TSH #### [facility] [address] [place] [address] Dr. Boogie Weiss Urea nitrogen [Mass/Vol] 15.0 mg/dL Normal 7.0-18.0 [facility] Comment on above: Performed By: #### C FAISAL HSTROPN, TSH #### [facility] [address] [place] [address] Dr. Boogie Weiss Urea nitrogen/Creatinine [Mass ratio] 16.5 mg/mg Normal [facility] Comment on above: Performed By: #### C FAISAL HSTROPN, TSH #### [facility] [address] [place] [address] Dr. Boogie Weiss TROPONIN, HIGH SENSITIVITYon 09-02-2022 HSTROP 6.6 pg/mL Normal 4.0-51.3 [facility] Comment on above: Result Comment: CUT- OFF POINTS HAVE BEEN ESTABLISHED BASED ON THE FOURTH UNIVERSAL DEFINITIONS OF MYOCARDIAL INFARCTION. THE UPPER REFERENCE LIMIT (URL) OF TROPONIN, DEFINED THE 99TH PERCENTILE OF cTnI DISTRIBUTION IN A REFERENCE POPULATION, HAS BEEN CONFIRMED THE DECISION THRESHOLD FOR DC DIAGNOSIS. Performed By: #### A 1C #### [facility] [address] [place] [address] Dr. Boogie Weiss HSTROP 7.7 pg/mL Normal 4.0-51.3 [facility] Comment on above: Result Comment: CUT- OFF POINTS HAVE BEEN ESTABLISHED BASED ON THE FOURTH UNIVERSAL DEFINITIONS OF MYOCARDIAL INFARCTION. THE UPPER REFERENCE LIMIT (URL) OF TROPONIN, DEFINED THE 99TH PERCENTILE OF cTnI DISTRIBUTION IN A REFERENCE POPULATION, HAS BEEN CONFIRMED THE DECISION THRESHOLD FOR DC DIAGNOSIS. Performed By: #### C GURU MALONE, TSH #### [facility] [address] [place] [address] Dr. Boogie Weiss TSHon 09-02-2022 TSH 4.175 uIU/mL Critically high 0.358-3.740 [facility] Comment on above: Performed By: #### C GURU MALONE, TSH #### [facility] [address] [place] [address] Dr. Boogie Weiss XR CHEST 1 Von [...] ANDREW HARRY Date: 2022-09-02 18:42 Normal [facility] CBC AUTO DIFFon 12-26-2021 BASO # 0.0 103/ul Normal 0.0-0.1 [facility] Comment on above: Performed By: #### C BC #### [facility] [address] [place] [address] Dr. Boogie Weiss Basophils/100 WBC (Bld) 0.7 % Normal 0.2-2.0 [facility] Comment on above: Performed By: #### C BC #### [facility] [address] [place] [address] Dr. Boogie Weiss EO # 0.0 103/ul Normal 0.0-0.7 [facility] Comment on above: Performed By: #### C BC #### [facility] [address] [place] [address] Dr. Boogie Weiss Eosinophils/100 WBC (Bld) 0.4 % Critically low 0.9-7.0 [facility] Comment on above: Performed By: #### C BC #### [facility] [address] [place] [address] Dr. Boogie Weiss Erythrocyte distribution width (RBC) [Ratio] 13.7 % Normal 11.0-15.0 [facility] Comment on above: Performed By: #### C BC #### [facility] [address] [place] [address] Dr. Boogie Weiss Hematocrit (Bld) [Volume fraction] 41.1 % Normal 36.0-48.0 [facility] Comment on above: Performed By: #### C BC #### [facility] [address] [place] [address] Dr. Boogie Weiss Hemoglobin (Bld) [Mass/Vol] 13.2 g/dL Normal 12.0-16.0 [facility] Comment on above: Performed By: #### C BC #### [facility] [address] [place] [address] Dr. Boogie Weiss IG # 0.03 10e3/ul Normal 0.00-0.03 [facility] Comment on above: Performed By: #### C BC #### [facility] [address] [place] [address] Dr. Boogie Weiss IG % 0.6 % Critically high 0.0-0.5 [facility] Comment on above: Performed By: #### C BC #### [facility] [address] [place] [address] Dr. Boogie Weiss LYMPH # 1.8 103/ul Normal 1.2-3.8 [facility] Comment on above: Performed By: #### C BC #### [facility] [address] [place] [address] Dr. Boogie Weiss Lymphocytes/100 WBC (Bld) 33.5 % Normal 20.5-60.0 [facility] Comment on above: Performed By: #### C BC #### [facility] [address] [place] [address] Dr. Boogie Weiss MANUAL DIFF REQ NO Normal [facility] Comment on above: Performed By: #### C BC #### [facility] [address] [place] [address] Dr. Boogie Weiss MCH (RBC) [Entitic mass] 27.8 pg Normal 26.7-34.0 [facility] Comment on above: Performed By: #### C BC #### [facility] [address] [place] [address] Dr. Boogie Weiss MCHC (RBC) [Mass/Vol] 32.1 g/dL Normal 29.9-35.2 [facility] Comment on above: Performed By: #### C BC #### [facility] [address] [place] [address] Dr. Boogie Weiss MCV (RBC) [Entitic vol] 86.5 fL Normal 81.0-99.0 [facility] Comment on above: Performed By: #### C BC #### [facility] [address] [place] [address] Dr. Boogie Weiss MONO # 0.3 103/ul Normal 0.3-0.8 [facility] Comment on above: Performed By: #### C BC #### [facility] [address] [place] [address] Dr. Boogie Weiss Monocytes/100 WBC (Bld) 5.2 % Normal 1.7-12.0 [facility] Comment on above: Performed By: #### C BC #### [facility] [address] [place] [address] Dr. Boogie Weiss NEUT # 3.2 103/ul Normal 1.4-6.5 [facility] Comment on above: Performed By: #### C BC #### [facility] [address] [place] [address] Dr. Boogie Weiss Neutrophils/100 WBC (Bld) 59.6 % Normal 43.0-75.0 [facility] Comment on above: Performed By: #### C BC #### [facility] [address] [place] [address] Dr. Boogie Weiss Platelet mean volume (Bld) [Entitic vol] 9.1 fL Critically low 9.5-13.5 [facility] Comment on above: Performed By: #### C BC #### [facility] [address] [place] [address] Dr. Boogie Weiss PLT 309 103/ul Normal 150-450 [facility] Comment on above: Performed By: #### C BC #### [facility] [address] [address] [address] Boogie Weiss RBC 4.75 106/ul Normal 4.20-5.40 [facility] Comment on above: Performed By: #### C BC #### [facility] [address] [place] [address] Dr. Boogie Weiss WBC 5.4 103/ul Normal 4.0-11.0 [facility] Comment on above: Performed By: #### C BC #### [facility] [address] [place] [address] Dr. Boogie Weiss FREE T3on 12-26-2021 FREE T3 2.78 pg/mlL Normal 2.18-3.98 [facility] Comment on above: Performed By: #### A 1C #### [facility] [address] [place] [address] Dr. Boogie Weiss GLYCOHEMOGLOBIN A1Con 2021 ADA RECOMMENDATION SEE BELOW Normal [facility] Comment on above: Result Comment: ADA RECOMMENDED LIMIT 4.0 - 6.0 ADA THERAPEUTIC TARGET < 7.0 ACTION SUGGESTED > 7.0 Performed By: #### A 1C #### [facility] [address] [place] [address] Dr. Boogie Weiss Glucose [Mass/Vol] 120 mg/dL Normal [facility] Comment on above: Performed By: #### A 1C #### [facility] [address] [place] [address] Dr. Boogie Weiss HbA1c (Bld) [Mass fraction] 5.8 % Normal 4.5-6.2 [facility] Comment on above: Performed By: #### A 1C #### [facility] [address] [place] [address] Dr. Boogie Weiss LIPID PROFILEon 12-26-2021 CHOL-HDL RATIO NORM SEE BELOW Normal [facility] Comment on above: Result Comment: 3.3 - 4.4 LOW RISK 4.4 - 7.1 AVERAGE RISK 7.1 - 11.0 MODERATE RISK >11.0 HIGH RISK Performed By: #### A 1C #### [facility] [address] [place], [place] [address] Dr. Boogie Weiss Cholesterol [Mass/Vol] 201 mg/dL Critically high <=200 [facility] Comment on above: Performed By: #### A 1C #### [facility] [address] [place], [place] [address] Dr. Boogie Weiss Cholesterol in HDL [Mass/Vol] 44 mg/dL Normal 40-60 [facility] Comment on above: Performed By: #### A 1C #### [facility] [address] [address] [address] Boogie Weiss Cholesterol in LDL [Mass/Vol] 121.0 mg/dL Normal [facility] Comment on above: Performed By: #### A 1C #### [facility] [address] [address] [address] Boogie Weiss Cholesterol.total/Cho lesterol in HDL [Mass ratio] 4.6 {ratio} Normal [facility] Comment on above: Performed By: #### A 1C #### [facility] [address] [address] [address] Boogie Weiss HDL NORMAL > or = 60 mg/dl - LOW CARDIOVASCULAR RISK <40 mg/dl - HIGH CARDIOVASCULAR RISK Normal [facility] Comment on above: Performed By: #### A 1C #### [facility] [address] [address] [address] Boogie Weiss LDL CALC NORMAL SEE BELOW Normal [facility] Comment on above: Result Comment: <100 mg/dl OPTIMAL 100 - 129 mg/dl NEAR OR ABOVE OPTIMAL 130 - 159 mg/dl BORDERLINE HIGH 160 - 189 mg/dl HIGH >190 mg/dl VERY HIGH Performed By: #### A 1C #### [facility] [address] [address] [address] Boogie Weiss Triglyceride [Mass/Vol] 180 mg/dL Critically high <=150 [facility] Comment on above: Performed By: #### A 1C #### [facility] [address] [place] [address] Dr. Boogie Weiss VLDL CALC 36.0 mg/dL Normal [facility] Comment on above: Performed By: #### A 1C #### [facility] [address] [place] [address] Dr. Boogie Weiss PROF 14(COMP METB)on 022 Albumin [Mass/Vol] 3.8 g/dL Normal 3.4-5.0 [facility] Comment on above: Performed By: #### A 1C #### [facility] [address] [place] [address] Dr. Boogie Weiss Albumin/Globulin [Mass ratio] 0.9 {ratio} Normal [facility] Comment on above: Performed By: #### A 1C #### [facility] [address] [place] [address] Dr. Boogie Weiss ALP [Catalytic activity/Vol] 101 U/L Normal 46-116 [facility] Comment on above: Performed By: #### A 1C #### [facility] [address] [place] [address] Dr. Boogie Weiss ALT [Catalytic activity/Vol] 34 U/L Normal 14-59 [facility] Comment on above: Performed By: #### A 1C #### [facility] [address] [place] [address] Dr. Boogie Weiss Anion gap [Moles/Vol] 13.2 mmol/L Normal [facility] Comment on above: Performed By: #### A 1C #### [facility] [address] [place] [address] Dr. Boogie Weiss AST [Catalytic activity/Vol] 14 U/L Critically low 15-37 [facility] Comment on above: Performed By: #### A 1C #### [facility] [address] [place] [address] Dr. Boogie Weiss Bilirubin [Mass/Vol] 0.2 mg/dL Normal 0.2-1.0 [facility] Comment on above: Performed By: #### A 1C #### [facility] [address] [address] [address] Boogie Weiss Calcium [Mass/Vol] 9.2 mg/dL Normal 8.5-10.1 [facility] Comment on above: Performed By: #### A 1C #### [facility] [address] [address] [address] Boogie Weiss Chloride [Moles/Vol] 104 mmol/L Normal 98-107 [facility] Comment on above: Performed By: #### A 1C #### [facility] [address] [address] [address] Boogie Weiss CO2 [Moles/Vol] 27.2 mmol/L Normal 21.0-32.0 [facility] Comment on above: Performed By: #### A 1C #### [facility] [address] [place] [address] Dr. Boogie Weiss Creatinine [Mass/Vol] 1.06 mg/dL Critically high 0.55-1.02 [facility] Comment on above: Performed By: #### A 1C #### [facility] [address] [place] [address] Dr. Boogie Weiss EGFR-AF COMORAN >60 Normal >=60 [facility] Comment on above: Performed By: #### A 1C #### [facility] [address] [place] [address] Dr. Boogie Weiss EGFR-NON AF COMORAN 55 mL/min/1.73m2 Critically low >=60 [facility] Comment on above: Performed By: #### A 1C #### [facility] [address] [address] [address] Boogie Weiss Globulin (S) [Mass/Vol] 4.1 g/dL Normal [facility] Comment on above: Performed By: #### A 1C #### [facility] [address] [place] [address] Dr. Boogie Weiss Glucose [Mass/Vol] 113 mg/dL Critically high 74-106 [facility] Comment on above: Performed By: #### A 1C #### [facility] [address] [address] [address] Boogie Weiss Potassium [Moles/Vol] 4.4 mmol/L Normal 3.5-5.1 [facility] Comment on above: Performed By: #### A 1C #### [facility] [address] [address] [address] Boogie Weiss Protein [Mass/Vol] 7.9 g/dL Normal 6.4-8.2 [facility] Comment on above: Performed By: #### A 1C #### [facility] [address] [address] [address] Boogie Weiss Sodium [Moles/Vol] 140 mmol/L Normal 136-145 [facility] Comment on above: Performed By: #### A 1C #### [facility] [address] [place] [address] Dr. Boogie Weiss Urea nitrogen [Mass/Vol] 16.0 mg/dL Normal 7.0-18.0 [facility] Comment on above: Performed By: #### A 1C #### [facility] [address] [place] [address] Dr. Boogie Weiss Urea nitrogen/Creatinine [Mass ratio] 15.1 mg/mg Normal [facility] Comment on above: Performed By: #### A 1C #### [facility] [address] [place] [address] Dr. Boogie Weiss T4on 12-26-2021 T4 [Mass/Vol] 7.50 ug/dL Normal 4.80-13.90 [facility] Comment on above: Performed By: #### A 1C #### [facility] [address] [address] [address] Boogie Weiss TSHon 12-26-2021 TSH 4.804 uIU/mL Critically high 0.358-3.740 [facility] Comment on above: Performed By: #### A 1C #### [facility] [address] [place] [address] Dr. Boogie Weiss TSH RANGE SEE BELOW Normal [facility] Comment on above: Result Comment: <0.3 4 UIU/ml HYPERTHYROID 0.34-5.60 UIU/ml EUTHYROID >5.60 UIU/ml HYPOTHYROID Performed By: #### A 1C #### [facility] [address] [address] [address] Boogie Weiss VITAMIN D 25 OHon 12-26-2021 VIT D 25-OH 22.8 ng/mL Normal [facility] Comment on above: Performed By: #### A 1C #### [facility] [address] [address] [address] Boogie Weiss VIT D RANGES SEE BELOW Normal [facility] Comment on above: Result Comment: <20 ng/mL Vit D deficient 20 - <30 ng/mL Vit D insufficient 30 - 100 ng/mL Vit D sufficient >100 ng/mL Potential Toxicity Performed By: #### A 1C #### [facility] [address] [place] [address] Dr. Boogie Weiss Encounters Encounter Date Encounter Type Care Provider Facility Start: 09-06-2022 End: 09-07-[address] SÁNCHEZ SCHMID Facility:[facility] Start: 09-02-2022 End: 09-02-[address] SÁNCHEZ SCHMID Facility:[facility] Start: 07-17-2022 End: 07-17-2022 ambulatory GINNY CANDELARIA Facility:[facility] Start: 01-09-[address] SÁNCHEZ SCHMID Facility :[facility] Start: 01-01-2022 Encounter for genera l adult medical examination without abnormal findings DR SÁNCHEZ SCHMID [facility] Start: 12-26-2021 End: 12-27-[address] SÁNCHEZ SCHMID Facility:[facility] Start: 12-26-2021 End: 12-27-2021 Encounter for general adult medical examination without abnormal findings DR SÁNCHEZ SCHMID Facility:[facility] Start: 05-12-2017 End: 05-13-2017 Ambulatory DEFAULT PHYSICIAN Facility:[facility] Payers Date Payer Category Payer Unknown [id number] [id number] [id number] 1975 Unknown [id number] 2.16.84 [id number] 1975 Unknown [id number] 2.16.84 [id number] 1973 Unknown [id number] 2.16.84 [id number] 1973 Unknown [id number] 2.16.84 [id number] 1961 Self-pay 1961 Unknown [id number] Unknown Clinical Note 07-17-2022 Note Date & Type Note Facility 07-17-2022 Note PROCEDURE: XR WRIST RT MIN 3 V COMPARISON: None. HISTORY: Pain FINDINGS: BONES:No acute fracture or dislocation. Minimal degenerative changes with marginal osteophyte formation SOFT TISSUES:Negative. No visible soft tissue swelling. EFFUSION:None visible. OTHER: Negative. IMPRESSION: Minimal degenerative changes Electronically authenticated by: MARYLIN SPARROW Date: 2022-07-17 09:52 [facility] Summary Purpose Family History No Family History Records FoundNo Family History Records Found Advance Directives No Advanced Directives Records FoundNo Advanced Directives Records Found Additional Source Comments INFORMATION SOURCE (unrecogn ized section and content) DATE CREATED AUTHOR 02/03/[address] [facility] DATE CREATED AUTHOR AUTHOR'S ORGANIZ ATION 09/10/2022 [facility] FOR RECORDS PERTAINING TO PATIENTS WHO [...] BE BASED ON THE PRIMARY CLINICAL RECORDS. [employer] provides no warranty or guarantee of the accuracy or completeness of information in this document.
== END 2024-11-02 13:16 | disposition home or self-care (01) ==
LOC: MAMMO 13:15
PROVIDERS: PCP Family Medicine; Visit Provider Family Medicine
DX: Z00.00 Encounter for general adult medical examination without abnormal findings (principal)
CPT/HCPCS: 77063; 77067

== ENCOUNTER 2025-02-11 15:44 | Emergency (ER) | payer OTHER, BC, SELFPAY ==
[2025-02-11 15:51] VITALS: BP 166/71; PULSE 101; TEMP 36.7; O2SAT 98; BMI 41.2
--- NOTE | 2025-02-11 15:55 | XR_ITS ---
The [address] [address] Patient Name: LAURYN SAMPSON MRN: [id number] date: 1975 Sex: F Assigned Patient Location: ED.MAIN Current Patient Location: ED.MAIN Accession/Order Number: [id number] Exam Date: 02/11/2025 17:11 Report Date: 02/11/2025 17:14 At the request of: LAINEY GLASGOW Procedure: XR hand LT min 3V 3 views left knee plain film COMPARISON: None HISTORY: Left hand, left knee and left elbow pain. Fell. ACUTE FINDINGS: No acute findings DEGENERATIVE CHANGE: Mild SOFT TISSUE FINDINGS: Unremarkable JOINT EFFUSION: None POSTOP CHANGES: None BONE MINERALIZATION: Adequate XR/XR hand LT min 3V IMPRESSION: No acute findings 3 views left hand No acute displaced fracture or dislocation. IMPRESSION: No acute findings 3 views left elbow No joint effusion. 1 cm bony density near the lateral epicondylar region. Avulsion fracture age indeterminate. No dislocation. IMPRESSION: Age-indeterminate avulsion fracture of the lateral epicondylar region. Suspected to be remote. Impression dictated by: Robin Amato M.D. 02/11/2025 5:14 PM Dictation Location: [place] [address] Electronically authenticated by: [id number] Y Date: 02/11/2025 17:14
--- NOTE | 2025-02-11 15:55 | XR_ITS ---
The [address] [address] Patient Name: LAURYN SAMPSON MRN: [id number] date: 1975 Sex: F Assigned Patient Location: ED.MAIN Current Patient Location: ED.MAIN Accession/Order Number: [id number] Exam Date: 02/11/2025 17:11 Report Date: 02/11/2025 17:14 At the request of: LAINEY GLASGOW Procedure: XR hand LT min 3V 3 views left knee plain film COMPARISON: None HISTORY: Left hand, left knee and left elbow pain. Fell. ACUTE FINDINGS: No acute findings DEGENERATIVE CHANGE: Mild SOFT TISSUE FINDINGS: Unremarkable JOINT EFFUSION: None POSTOP CHANGES: None BONE MINERALIZATION: Adequate XR/XR knee LT 3V IMPRESSION: No acute findings 3 views left hand No acute displaced fracture or dislocation. IMPRESSION: No acute findings 3 views left elbow No joint effusion. 1 cm bony density near the lateral epicondylar region. Avulsion fracture age indeterminate. No dislocation. IMPRESSION: Age-indeterminate avulsion fracture of the lateral epicondylar region. Suspected to be remote. Impression dictated by: Robin Amato M.D. 02/11/2025 5:14 PM Dictation Location: [place] [address] Electronically authenticated by: [id number] Y Date: 02/11/2025 17:14
--- NOTE | 2025-02-11 15:55 | XR_ITS ---
The [address] [address] Patient Name: LAURYN SAMPSON MRN: [id number] date: 1975 Sex: F Assigned Patient Location: ED.MAIN Current Patient Location: ED.MAIN Accession/Order Number: [id number] Exam Date: 02/11/2025 17:11 Report Date: 02/11/2025 17:14 At the request of: LAINEY GLASGOW Procedure: XR hand LT min 3V 3 views left knee plain film COMPARISON: None HISTORY: Left hand, left knee and left elbow pain. Fell. ACUTE FINDINGS: No acute findings DEGENERATIVE CHANGE: Mild SOFT TISSUE FINDINGS: Unremarkable JOINT EFFUSION: None POSTOP CHANGES: None BONE MINERALIZATION: Adequate XR/XR elbow LT min 3V IMPRESSION: No acute findings 3 views left hand No acute displaced fracture or dislocation. IMPRESSION: No acute findings 3 views left elbow No joint effusion. 1 cm bony density near the lateral epicondylar region. Avulsion fracture age indeterminate. No dislocation. IMPRESSION: Age-indeterminate avulsion fracture of the lateral epicondylar region. Suspected to be remote. Impression dictated by: Robin Amato M.D. 02/11/2025 5:14 PM Dictation Location: [place] [address] Electronically authenticated by: [id number] Y Date: 02/11/2025 17:14
--- NOTE | 2025-02-11 15:57 | ED.GENADUL1 ---
HPI HPI - General Adult General Chief complaint: Extremity Injury, Upper Stated complaint: BWC - FALL AT WORK Time Seen by Provider: 02/11/25 15:47 Source: patient Mode of arrival: walk-in Limitations: no limitations History of Present Illness HPI narrative: Patient is a 49-year-old female presents to the ER with concerns of pain to her left knee left hand and left elbow. Patient was at work at [employer] walking past a cart that had loose netting which caused her to trip. Patient states she landed directly on her left kneecap and caught herself with her left hand and elbow. She has pain to the kneecap on the left knee base of her thumb on her palm and left elbow with motion. She denies any head or neck injury. Injury happened earlier this morning and the patient states she was trying to walk it off. 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 Patient denies headache, states she took Motrin earlier. She does not use any blood thinners and is allergic to penicillin. She denies any fevers or chills or prior injury Related Data Previous Rx's �Medication �Instructions �Recorded ibuprofen 600 mg tablet 600 mg PO TID PRN pain #30 tabs 02/11/25 Allergies Allergy/AdvReac Type Severity Reaction Status Date / Time Penicillins AdvReac Mild Hives Verified 02/11/25 15:55 Opioid HPI Opioid Management Most Recent Opioid Data: Last Pain Scale 8 Today, 15:51 Last MAR Pain Assessment Today, 16:19 Review of Systems ROS Constitutional Denies: fever or chills Eyes Denies: change in vision or blurry vision Ears, nose, mouth, and throat Denies: throat pain or neck pain Cardiovascular Denies: chest pain or palpitations Respiratory Denies: shortness of breath or cough Gastrointestinal Denies: abdominal pain, nausea or vomiting Genitourinary Denies: painful urination Musculoskeletal Reports: extremity pain; Denies: back pain or neck pain Integumentary/Breast Denies: rash PFSH PFSH Social History Little interest or pleasure in doing things: not at all Feeling down, depressed, or hopeless: not at all Exam Narrative Exam Narrative: Nurses notes and vital signs reviewed and patient is not hypoxic. General: The patient appears well and in no apparent distress. ambulating with limp, refusing wheel chair. Skin: Warm, dry, no pallor noted. no rash Head: Normocephalic, atraumatic Neck: Supple, trachea mid-line, no tenderness, no lymphadenopathy Eye: Pupils are equal, round and reactive to light, EOMI Ears, Nose, Mouth, and Throat: external exam unremarkable. Cardiovascular: Regular Rate and Rhythm Respiratory: Patient is in no distress, no accessory muscle use, lungs are clear to auscultation, no wheezing, rales or rhonchi. Chest Wall: no tenderness Back: non-tender, no CVA tenderness Musculoskeletal: Patient motors ankle bilaterally with 5 out of 5 dorsiflexion plantarflexion left knee noted for pain and swelling to the prepatellar region subtle bruising noted no evidence of skin injury there is mild soreness with palpation of the medial lateral joint line. Left hip with no pain symmetric to the right hip with internal and external rotation. The patient's left hand was noted for pain at the base of the left thumb there is mild soreness with wrist flexion and extension but intact and she is able to close her hand into a fist. The snuffbox is not focally tender with the majority of her pain being to the palmar aspect. Patient has pain to the left elbow that is diffuse worse with range of motion for flexion and extension. Patient prefers to hold that arm at 90 degrees and if elbow is flexed more than 30 degrees in either direction she complains of increased pain pronation and supination also appear to be painful but compartments are soft. She is able to make the okay sign. patient denies pain to the proximal shoulder. The forearm with syndesmotic compression GI: Normal bowel sounds, no tenderness to palpation, no masses appreciated. No rebound, guarding, or rigidity noted. Neurological: A&O x4 Psychiatric: Cooperative Constitutional Vital Signs, click to edit/add: Last Vital Signs Temp 98.1 F 02/11/25 15:51 Pulse 101 H 02/11/25 15:51 Resp 18 02/11/25 15:51 BP 166/71 H 02/11/25 15:51 Pulse Ox 98 02/11/25 15:51 O2 Del Method Room Air 02/11/25 15:51 Course Vital Signs Vital signs: Vital Signs Temperature 98.1 F 02/11/25 15:51 Pulse Rate 101 H 02/11/25 15:51 Respiratory Rate 18 02/11/25 15:51 Blood Pressure 166/71 H 02/11/25 15:51 Pulse Oximetry 98 02/11/25 15:51 Oxygen Delivery Method Room Air 02/11/25 15:51 Temperature 98.1 F 02/11/25 15:51 Pulse Rate 101 H 02/11/25 15:51 Respiratory Rate 18 02/11/25 15:51 Blood Pressure 166/71 H 02/11/25 15:51 Pulse Oximetry 98 02/11/25 15:51 Oxygen Delivery Method Room Air 02/11/25 15:51 Medical Decision Making MDM Narrative Medical decision making narrative: Patient presents with pain and swelling to her left knee left palm of her hand base of thumb and left elbow after a fall today at work. Tylenol was given for pain and ice packs applied. Patient declined wheelchair to the room but x-rays have been ordered for further evaluation of her joint pain status post fall. She denies any head or neck injury. Reviewed x-ray reports from radiologist the left hand, shows no acute fracture no effusion X-ray report left knee shows mild degenerative changes no acute fracture or displacement X-ray left elbow shows no joint effusion 1 cm bony density near the lateral epicondylar region avulsion fracture appears age-indeterminate no dislocation suspected to be remote injury: Personal review of the left elbow x-ray is suspected for joint effusion we discussed the need to follow-up with the occupational medicine clinic for reevaluation we have recommended a thumb spica brace to the left wrist and elbow protection with the sling we discussed measures to keep her shoulder from getting stiff but the importance of icing Motrin and to not use the arm for no lifting pushing or pulling pending reevaluation. Patient verbally aware that she may need further testing such as repeat x-ray or MRI for further evaluation into her symptoms. We discussed the need to follow-up with occupational medicine clinic before returning to work without any restrictions with concerns of her tenderness and effusion on x-ray. Patient thankful and had no further concerns or questions, [facility] paperwork was filled out Patient had a Velcro thumb spica brace applied to the left hand and wrist neurovascular intact status post application with good alignment a left arm sling was applied for immobilization of the elbow we discussed keeping it at 90 she may remove to shower neurovascularly intact status post application The patient is to followup with occupational medicine clinic in next 2-3 days or to return to the emergency department should any of the signs or symptoms worsen or new symptoms develop. Patient had questions answered. The patient agrees with the following Diagnosis and Treatment plan and the patient will be discharged home. Imaging Data L Knee, L hand, L elbow: Radiologist's impression: ITS Impressions Elbow X-Ray 02/11/25 15:55 IMPRESSION: No acute findings 3 views left hand No acute displaced fracture or dislocation. IMPRESSION: No acute findings 3 views left elbow No joint effusion. 1 cm bony density near the lateral epicondylar region. Avulsion fracture age indeterminate. No dislocation. IMPRESSION: Age-indeterminate avulsion fracture of the lateral epicondylar region. Suspected to be remote. Impression dictated by: Robin Amato M.D. 02/11/2025 5:14 PM Dictation Location: [employer] Electronically authenticated by: [id number] Y Date: 02/11/2025 17:14 Hand X-Ray 02/11/25 15:55 IMPRESSION: No acute findings 3 views left hand No acute displaced fracture or dislocation. IMPRESSION: No acute findings 3 views left elbow No joint effusion. 1 cm bony density near the lateral epicondylar region. Avulsion fracture age indeterminate. No dislocation. IMPRESSION: Age-indeterminate avulsion fracture of the lateral epicondylar region. Suspected to be remote. Impression dictated by: Robin Amato M.D. 02/11/2025 5:14 PM Dictation Location: [employer] Electronically authenticated by: [id number] Y Date: 02/11/2025 17:14 Knee X-Ray 02/11/25 15:55 IMPRESSION: No acute findings 3 views left hand No acute displaced fracture or dislocation. IMPRESSION: No acute findings 3 views left elbow No joint effusion. 1 cm bony density near the lateral epicondylar region. Avulsion fracture age indeterminate. No dislocation. IMPRESSION: Age-indeterminate avulsion fracture of the lateral epicondylar region. Suspected to be remote. Impression dictated by: Robin Amato M.D. 02/11/2025 5:14 PM Dictation Location: [employer] Electronically authenticated by: [id number] Y Date: 02/11/2025 17:14 Discharge Plan Discharge Chief Complaint: Extremity Injury, Upper Clinical Impression: Contusion of hand, left, Contusion of knee, left, Effusion of left elbow Patient Disposition: Home, Self-Care Time of Disposition Decision: 17:24 Condition: Good Mode of Transportation: Private Vehicle Prescriptions / Home Meds: New ibuprofen 600 mg tablet 600 mg PO TID PRN (Reason: pain) Qty: 30 0RF Print Language: Tajik Instructions: Swollen Joint (ED) Additional Instructions: Please contact a [facility] clinic with the list provided you should contact them on Thursday for a follow-up appointment to discuss injuries and likely need for repeat imaging and evaluation. Work restrictions provided within the [facility] information seek Referrals: Demond Winter MD [Primary Care Provider, Family Practice] - 1 week
--- OUTSIDE RECORDS SUMMARY | 2025-02-11 16:07 | XMS_ITS | CCD ---
Author Organization [facility] Care Team Providers Care Insole Coverer Name Role Phone PHYSICIAN, DEFAULT Unavailable Unavailable [...] (2 sources) diazePAM Drug Allergy 06-10-2016 [facility] Rep[facility] (2 sources) Iodine (And Iodine Containting Drugs) Drug allergy (disorder) 06-10-2016 [facility] (2 sources) Penicillins Drug allergy (disorder) 01-02-2016 [facility] Rep[facility] Problems Problem Classification Problem Date [...] Onset: 3 Episodic Other aftercare (1 source) 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 Boogie Weiss CBC AUTO DIFFon 09-06-2022 BASO # 0.0 103/ul Normal 0.0-0.1 [facility] Comment on above: Performed By: #### I ISAAK #### [facility] [address] [place] [address] Dr. Boogie Weiss Basophils/100 WBC (Bld) 0.5 % Normal 0.2-2.0 [facility] Comment on above: Performed By: #### I ISAAK #### [facility] [address] [place] [address] Dr. Boogie Weiss EO # 0.0 103/ul Normal 0.0-0.7 [facility] Comment on above: Performed By: #### I ISAAK #### [facility] [address] [place] [address] Dr. Boogie Weiss Eosinophils/100 WBC (Bld) 0.2 % Critically low 0.9-7.0 [facility] Comment on above: Performed By: #### I ISAAK #### [facility] [address] [place] [address] Dr. Boogie Weiss Erythrocyte distribution width (RBC) [Ratio] 14.3 % Normal 11.0-15.0 [facility] Comment on above: Performed By: #### I ISAAK #### [facility] [address] [place] [address] Dr. Boogie Weiss Hematocrit (Bld) [Volume fraction] 39.0 % Normal 36.0-48.0 [facility] Comment on above: Performed By: #### I ISAAK #### [facility] [address] [place] [address] Dr. Boogie Weiss Hemoglobin (Bld) [Mass/Vol] 13.3 g/dL Normal 12.0-16.0 [facility] Comment on above: Performed By: #### I ISAAK #### [facility] [address] [place] [address] Dr. Boogie Weiss IG # 0.02 10e3/ul Normal 0.00-0.03 [facility] Comment on above: Performed By: #### I ISAAK #### [facility] [address] [place] [address] Dr. Boogie Weiss IG % 0.3 % Normal 0.0-0.5 [facility] Comment on above: Performed By: #### I ISAAK #### [facility] [address] [place] [address] Dr. Boogie Weiss LYMPH # 1.9 103/ul Normal 1.2-3.8 [facility] Comment on above: Performed By: #### I ISAAK #### [facility] [address] [place] [address] Dr. Boogie Weiss Lymphocytes/100 WBC (Bld) 30.2 % Normal 20.5-60.0 [facility] Comment on above: Performed By: #### I ISAAK #### [facility] [address] [place] [address] Dr. Boogie Weiss MANUAL DIFF REQ NO Normal [facility] Comment on above: Performed By: #### I ISAAK #### [facility] [address] [place] [address] Dr. Boogie Weiss MCH (RBC) [Entitic mass] 27.4 pg Normal 26.7-34.0 [facility] Comment on above: Performed By: #### I ISAAK #### [facility] [address] [place] [address] Dr. Boogie Weiss MCHC (RBC) [Mass/Vol] 34.1 g/dL Normal 29.9-35.2 [facility] Comment on above: Performed By: #### I ISAAK #### [facility] [address] [place] [address] Dr. Boogie Weiss MCV (RBC) [Entitic vol] 80.2 fL Critically low 81.0-99.0 [facility] Comment on above: Performed By: #### I ISAAK #### [facility] [address] [place] [address] Dr. Boogie Weiss MONO # 0.3 103/ul Normal 0.3-0.8 [facility] Comment on above: Performed By: #### I ISAAK #### [facility] [address] [place] [address] Dr. Boogie Weiss Monocytes/100 WBC (Bld) 4.8 % Normal 1.7-12.0 [facility] Comment on above: Performed By: #### I ISAAK #### [facility] [address] [place] [address] Dr. Boogie Weiss NEUT # 4.1 103/ul Normal 1.4-6.5 [facility] Comment on above: Performed By: #### I ISAAK #### [facility] [address] [place] [address] Dr. Boogie Weiss Neutrophils/100 WBC (Bld) 64.0 % Normal 43.0-75.0 [facility] Comment on above: Performed By: #### I ISAAK #### [facility] [address] [place] [address] Dr. Boogie Weiss Platelet mean volume (Bld) [Entitic vol] 9.3 fL Critically low 9.5-13.5 [facility] Comment on above: Performed By: #### I ISAAK #### [facility] [address] [place] [address] Dr. Boogie Weiss PLT 335 103/ul Normal 150-450 [facility] Comment on above: Performed By: #### I ISAAK #### [facility] [address] [place] [address] Dr. Boogie Weiss RBC 4.86 106/ul Normal 4.20-5.40 [facility] Comment on above: Performed By: #### I ISAAK #### [facility] [address] [place] [address] Dr. Boogie Weiss WBC 6.4 103/ul Normal 4.0-11.0 [facility] Comment on above: Performed By: #### I ISAAK #### [facility] [address] [place] [address] Dr. Boogie Weiss FREE THYROXINE INDEX T7on FTI 3.10 Normal 1.30-4.50 [facility] Comment on above: Performed By: #### A 1C #### [facility] [address] [place] [address] Dr. Boogie Weiss T3U 36.0 % Normal 30.0-39.0 [facility] Comment on above: Performed By: #### A 1C #### [facility] [address] [address] [address] Boogie Weiss T4 [Mass/Vol] 8.60 ug/dL Normal 4.80-13.90 [facility] Comment on above: Performed By: #### A 1C #### [facility] [address] [address] [address] Boogie Weiss GLYCOHEMOGLOBIN A1Con 2022 ADA RECOMMENDATION SEE BELOW Normal [facility] Comment on above: Result Comment: ADA RECOMMENDED LIMIT 4.0 - 6.0 ADA THERAPEUTIC TARGET < 7.0 ACTION SUGGESTED > 7.0 Performed By: #### A 1C #### [facility] [address] [place] [address] Dr. Boogie Weiss Glucose [Mass/Vol] 128 mg/dL Normal [facility] Comment on above: Performed By: #### A 1C #### [facility] [address] [place] [address] Dr. Boogie Weiss HbA1c (Bld) [Mass fraction] 6.1 % Normal 4.5-6.2 [facility] Comment on above: Performed By: #### A 1C #### [facility] [address] [place] [address] Dr. Boogie Weiss IRONon 09-06-2022 Iron [Mass/Vol] 41.0 ug/dL Critically low 50.0-170.0 [facility] Comment on above: Performed By: #### I ISAAK #### [facility] [address] [place] [address] Dr. Boogie Weiss LIPID PROFILEon 09-06-2022 CHOL-HDL RATIO NORM SEE BELOW Normal [facility] Comment on above: Result Comment: 3.3 - 4.4 LOW RISK 4.4 - 7.1 AVERAGE RISK 7.1 - 11.0 MODERATE RISK >11.0 HIGH RISK Performed By: #### L IPID, TSH, T7, CMP #### [facility] [address] [place] [address] Dr. Boogie Weiss Cholesterol [Mass/Vol] 141 mg/dL Normal <=200 [facility] Comment on above: Performed By: #### L IPID, TSH, T7, CMP #### [facility] [address] [address] [address] Boogie Weiss Cholesterol in HDL [Mass/Vol] 37 mg/dL Critically low 40-60 [facility] Comment on above: Performed By: #### L IPID, TSH, T7, CMP #### [facility] [address] [address] [address] Boogie Weiss Cholesterol in LDL [Mass/Vol] 67.0 mg/dL Normal [facility] Comment on above: Performed By: #### L IPID, TSH, T7, CMP #### [facility] [address] [address] [address] Boogie Weiss Cholesterol.total/Cho lesterol in HDL [Mass ratio] 3.8 {ratio} Normal [facility] Comment on above: Performed By: #### L IPID, TSH, T7, CMP #### [facility] [address] [address] [address] Boogie Weiss HDL NORMAL > or = 60 mg/dl - LOW CARDIOVASCULAR RISK <40 mg/dl - HIGH CARDIOVASCULAR RISK Normal [facility] Comment on above: Performed By: #### L IPID, TSH, T7, CMP #### [facility] [address] [address] [address] Boogie Weiss LDL CALC NORMAL SEE BELOW Normal [facility] Comment on above: Result Comment: <100 mg/dl OPTIMAL 100 - 129 mg/dl NEAR OR ABOVE OPTIMAL 130 - 159 mg/dl BORDERLINE HIGH 160 - 189 mg/dl HIGH >190 mg/dl VERY HIGH Performed By: #### L IPID, TSH, T7, CMP #### [facility] [address] [address] [address] Boogie Weiss Triglyceride [Mass/Vol] 185 mg/dL Critically high <=150 [facility] Comment on above: Performed By: #### L IPID, TSH, T7, CMP #### [facility] [address] [address] [address] Boogie Weiss VLDL CALC 37.0 mg/dL Normal [facility] Comment on above: Performed By: #### L IPID, TSH, T7, CMP #### [facility] [address] [address] [address] Boogie Weiss PROF 14(COMP METB)on 023 Albumin [Mass/Vol] 3.9 g/dL Normal 3.4-5.0 [facility] Comment on above: Performed By: #### A 1C #### [facility] [address] [place] [address] Dr. Boogie Weiss Albumin/Globulin [Mass ratio] 1.0 {ratio} Normal [facility] Comment on above: Performed By: #### A 1C #### [facility] [address] [place] [address] Dr. Boogie Weiss ALP [Catalytic activity/Vol] 100 U/L Normal 46-116 [facility] Comment on above: Performed By: #### A 1C #### [facility] [address] [place] [address] Dr. Boogie Weiss ALT [Catalytic activity/Vol] 43 U/L Normal 14-59 [facility] Comment on above: Performed By: #### A 1C #### [facility] [address] [place] [address] Dr. Boogie Weiss Anion gap [Moles/Vol] 11.9 mmol/L Normal [facility] Comment on above: Performed By: #### A 1C #### [facility] [address] [place] [address] Dr. Boogie Weiss AST [Catalytic activity/Vol] 18 U/L Normal 15-37 [facility] Comment on above: Performed By: #### A 1C #### [facility] [address] [place] [address] Dr. Boogie Weiss Bilirubin [Mass/Vol] 0.2 mg/dL Normal 0.2-1.0 [facility] Comment on above: Performed By: #### A 1C #### [facility] [address] [place] [address] Dr. Boogie Weiss Calcium [Mass/Vol] 9.2 mg/dL Normal 8.5-10.1 [facility] Comment on above: Performed By: #### A 1C #### [facility] [address] [address] [address] Boogie Weiss Chloride [Moles/Vol] 104 mmol/L Normal 98-107 [facility] Comment on above: Performed By: #### A 1C #### [facility] [address] [address] [address] Boogie Weiss CO2 [Moles/Vol] 29.5 mmol/L Normal 21.0-32.0 [facility] Comment on above: Performed By: #### A 1C #### [facility] [address] [address] [address] Boogie Weiss Creatinine [Mass/Vol] 0.85 mg/dL Normal 0.55-1.02 [facility] Comment on above: Performed By: #### A 1C #### [facility] [address] [place] [address] Dr. Boogie Weiss EGFR-AF BRAZILIAN >60 Normal >=60 [facility] Comment on above: Performed By: #### A 1C #### [facility] [address] [place] [address] Dr. Boogie Weiss EGFR-NON AF BRAZILIAN >60 Normal >=60 [facility] Comment on above: Performed By: #### A 1C #### [facility] [address] [place] [address] Dr. Boogie Weiss Globulin (S) [Mass/Vol] 3.9 g/dL Normal [facility] Comment on above: Performed By: #### A 1C #### [facility] [address] [place] [address] Dr. Boogie Weiss Glucose [Mass/Vol] 104 mg/dL Normal 74-106 [facility] Comment on above: Performed By: #### A 1C #### [facility] [address] [place] [address] Dr. Boogie Weiss Potassium [Moles/Vol] 4.4 mmol/L Normal 3.5-5.1 [facility] Comment on above: Performed By: #### A 1C #### [facility] [address] [place] [address] Dr. Boogie Weiss Protein [Mass/Vol] 7.8 g/dL Normal 6.4-8.[address] [facility] Comment on above: Performed By: #### A 1C #### [facility] [address] [place] [address] Dr. Boogie Weiss Sodium [Moles/Vol] 141 mmol/L Normal 136-[address] [facility] Comment on above: Performed By: #### A 1C #### [facility] [address] [place] [address] Dr. Boogie Weiss Urea nitrogen [Mass/Vol] 16.0 mg/dL Normal 7.0-18.0 [facility] Comment on above: Performed By: #### A 1C #### [facility] [address] [place] [address] Dr. Boogie Weiss Urea nitrogen/Creatinine [Mass ratio] 18.8 mg/mg Normal [facility] Comment on above: Performed By: #### A 1C #### [facility] [address] [place] [address] Dr. Boogie Weiss TSHon 09-06-2022 TSH 2.565 uIU/mL Normal 0.358-3.740 [facility] Comment on above: Performed By: #### L IPID, TSH, T7, CMP #### [facility] [address] [place] [address] Dr. Boogie Weiss CBC AUTO DIFFon 09-02-2022 BASO # 0.0 103/ul Normal 0.0-0.1 [facility] Comment on above: Performed By: #### C BC #### [facility] [address] [place] [address] Dr. Boogie Weiss Basophils/100 WBC (Bld) 0.3 % Normal 0.2-2.0 [facility] Comment on above: Performed By: #### C BC #### [facility] [address] [place] [address] Dr. Boogie Weiss EO # 0.0 103/ul Normal 0.0-0.7 [facility] Comment on above: Performed By: #### C BC #### [facility] [address] [place] [address] Dr. Boogie Weiss Eosinophils/100 WBC (Bld) 0.1 % Critically low 0.9-7.0 [facility] Comment on above: Performed By: #### C BC #### [facility] [address] [place] [address] Dr. Boogie Weiss Erythrocyte distribution width (RBC) [Ratio] 14.5 % Normal 11.0-15.0 [facility] Comment on above: Performed By: #### C BC #### [facility] [address] [place] [address] Dr. Boogie Weiss Hematocrit (Bld) [Volume fraction] 39.7 % Normal 36.0-48.0 [facility] Comment on above: Performed By: #### C BC #### [facility] [address] [place] [address] Dr. Boogie Weiss Hemoglobin (Bld) [Mass/Vol] 13.2 g/dL Normal 12.0-16.0 [facility] Comment on above: Performed By: #### C BC #### [facility] [address] [place] [address] Dr. Boogie Weiss IG # 0.06 10e3/ul Critically high 0.00-0.03 [facility] Comment on above: Performed By: #### C BC #### [facility] [address] [place] [address] Dr. Boogie Weiss IG % 0.5 % Normal 0.0-0.5 [facility] Comment on above: Performed By: #### C BC #### [facility] [address] [place] [address] Dr. Boogie Weiss LYMPH # 1.3 103/ul Normal 1.2-3.8 [facility] Comment on above: Performed By: #### C BC #### [facility] [address] [place] [address] Dr. Boogie Weiss Lymphocytes/100 WBC (Bld) 10.9 % Critically low 20.5-60.0 [facility] Comment on above: Performed By: #### C BC #### [facility] [address] [address] [address] Boogie Weiss MANUAL DIFF REQ NO Normal [facility] Comment on above: Performed By: #### C BC #### [facility] [address] [place] [address] Dr. Boogie Weiss MCH (RBC) [Entitic mass] 28.4 pg Normal 26.7-34.0 [facility] Comment on above: Performed By: #### C BC #### [facility] [address] [place] [address] Dr. Boogie Weiss MCHC (RBC) [Mass/Vol] 33.2 g/dL Normal 29.9-35.2 [facility] Comment on above: Performed By: #### C BC #### [facility] [address] [place] [address] Dr. Boogie Weiss MCV (RBC) [Entitic vol] 85.4 fL Normal 81.0-99.0 [facility] Comment on above: Performed By: #### C BC #### [facility] [address] [place] [address] Dr. Boogie Weiss MONO # 0.2 103/ul Critically low 0.3-0.8 [facility] Comment on above: Performed By: #### C BC #### [facility] [address] [place] [address] Dr. Boogie Weiss Monocytes/100 WBC (Bld) 2.1 % Normal 1.7-12.0 [facility] Comment on above: Performed By: #### C BC #### [facility] [address] [place] [address] Dr. Boogie Weiss NEUT # 9.8 103/ul Critically high 1.4-6.5 [facility] Comment on above: Performed By: #### C BC #### [facility] [address] [place] [address] Dr. Boogie Weiss Neutrophils/100 WBC (Bld) 86.1 % Critically high 43.0-75.0 [facility] Comment on above: Performed By: #### C BC #### [facility] [address] [address] [address] Boogie Weiss Platelet mean volume (Bld) [Entitic vol] 9.7 fL Normal 9.5-13.5 [facility] Comment on above: Performed By: #### C BC #### [facility] [address] [address] [address] Boogie Weiss PLT 351 103/ul Normal 150-450 [facility] Comment on above: Performed By: #### C BC #### [facility] [address] [address] [address] Boogie Weiss RBC 4.65 106/ul Normal 4.20-5.40 [facility] Comment on above: Performed By: #### C BC #### [facility] [address] [place] [address] Dr. Boogie Weiss WBC 11.4 103/ul Critically high 4.0-11.0 [facility] Comment on above: Performed By: #### C BC #### [facility] [address] [place] [address] Dr. Boogie Weiss D-DIMERon 09-02-2022 D-DIMER 0.28 mg/L FEU Normal <=0.59 [facility] Comment on above: Performed By: #### I ISAAK #### [facility] [address] [place] [address] Dr. Boogie Weiss D-DIMER COMMENTS SEE BELOW Normal [facility] Comment on above: Result Comment: Incr eases [...] hospitalization. Performed By: #### I ISAAK #### [facility] [address] [place] [address] Dr. Boogie Weiss PROF 14(COMP METB)on 023 Albumin [Mass/Vol] 4.0 g/dL Normal 3.4-5.0 [facility] Comment on above: Performed By: #### C FAISAL HSTROPN, TSH #### [facility] [address] [place] [address] Dr. Boogie Weiss Albumin/Globulin [Mass ratio] 1.0 {ratio} Normal [facility] Comment on above: Performed By: #### C FAISAL HSTROPN, TSH #### [facility] [address] [place] [address] Dr. Boogie Weiss ALP [Catalytic activity/Vol] 106 U/L Normal 46-116 [facility] Comment on above: Performed By: #### C ESHA MALONETROPN, TSH #### [facility] [address] [place] [address] Dr. Boogie Weiss ALT [Catalytic activity/Vol] 38 U/L Normal 14-59 [facility] Comment on above: Performed By: #### C FAISAL HSTROPN, TSH #### [facility] [address] [place] [address] Dr. Boogie Weiss Anion gap [Moles/Vol] 13.9 mmol/L Normal [facility] Comment on above: Performed By: #### C FAISAL HSTROPN, TSH #### [facility] [address] [place] [address] Dr. Boogie Weiss AST [Catalytic activity/Vol] 22 U/L Normal 15-37 [facility] Comment on above: Performed By: #### C FAISAL HSTROPN, TSH #### [facility] [address] [place] [address] Dr. Boogie Weiss Bilirubin [Mass/Vol] 0.3 mg/dL Normal 0.2-1.0 [facility] Comment on above: Performed By: #### C FAISAL HSTROPN, TSH #### [facility] [address] [place] [address] Dr. Boogie Weiss Calcium [Mass/Vol] 9.0 mg/dL Normal 8.5-10.1 [facility] Comment on above: Performed By: #### C FAISAL HSTROPN, TSH #### [facility] [address] [address] [address] Boogie Weiss Chloride [Moles/Vol] 102 mmol/L Normal 98-107 [facility] Comment on above: Performed By: #### C MP, HSTROPN, TSH #### [facility] [address] [address] [address] Boogie Weiss CO2 [Moles/Vol] 25.1 mmol/L Normal 21.0-32.0 [facility] Comment on above: Performed By: #### C MP, HSTROPN, TSH #### [facility] [address] [address] [address] Boogie Weiss Creatinine [Mass/Vol] 0.91 mg/dL Normal 0.55-1.02 [facility] Comment on above: Performed By: #### C MP, HSTROPN, TSH #### [facility] [address] [address] [address] Boogie Weiss EGFR-AF BRAZILIAN >60 Normal >=60 [facility] Comment on above: Performed By: #### C MP, HSTROPN, TSH #### [facility] [address] [address] [address] Boogie Weiss EGFR-NON AF BRAZILIAN >60 Normal >=60 [facility] Comment on above: Performed By: #### C MP, HSTROPN, TSH #### [facility] [address] [address] [address] Boogie Weiss Globulin (S) [Mass/Vol] 4.0 g/dL Normal [facility] Comment on above: Performed By: #### C MP, HSTROPN, TSH #### [facility] [address] [address] [address] Boogie Weiss Glucose [Mass/Vol] 105 mg/dL Normal 74-106 [facility] Comment on above: Performed By: #### C MP, HSTROPN, TSH #### [facility] [address] [address] [address] Boogie Weiss Potassium [Moles/Vol] 4.0 mmol/L Normal 3.5-5.1 [facility] Comment on above: Performed By: #### C MP HSTROPN, TSH #### [facility] [address] [place] [address] Dr. Boogie Weiss Protein [Mass/Vol] 8.0 g/dL Normal 6.4-8.[address] [facility] Comment on above: Performed By: #### C MP HSTROPN, TSH #### [facility] [address] [place] [address] Dr. Boogie Weiss Sodium [Moles/Vol] 137 mmol/L Normal 136-[address] [facility] Comment on above: Performed By: #### C FAISAL HSTROPN, TSH #### [facility] [address] [place] [address] Dr. Boogie Weiss Urea nitrogen [Mass/Vol] 15.0 mg/dL Normal 7.0-18.0 [facility] Comment on above: Performed By: #### C FAISAL HSTROPN, TSH #### [facility] [address] [place] [address] Dr. Boogie Weiss Urea nitrogen/Creatinine [Mass ratio] 16.5 mg/mg Normal [facility] Comment on above: Performed By: #### C FAISLA HSTROPN, TSH #### [facility] [address] [place] [address] Dr. Boogie Weiss TROPONIN, HIGH SENSITIVITYon 09-02-2022 HSTROP 6.6 pg/mL Normal 4.0-51.3 [facility] Comment on above: Result Comment: CUT- OFF POINTS HAVE BEEN ESTABLISHED BASED ON THE FOURTH UNIVERSAL DEFINITIONS OF MYOCARDIAL INFARCTION. THE UPPER REFERENCE LIMIT (URL) OF TROPONIN, DEFINED THE 99TH PERCENTILE OF cTnI DISTRIBUTION IN A REFERENCE POPULATION, HAS BEEN CONFIRMED THE DECISION THRESHOLD FOR [place] DIAGNOSIS. Performed By: #### A 1C #### [facility] [address] [place] [address] Dr. Boogie Weiss HSTROP 7.7 pg/mL Normal 4.0-51.3 [facility] Comment on above: Result Comment: CUT- OFF POINTS HAVE BEEN ESTABLISHED BASED ON THE FOURTH UNIVERSAL DEFINITIONS OF MYOCARDIAL INFARCTION. THE UPPER REFERENCE LIMIT (URL) OF TROPONIN, DEFINED THE 99TH PERCENTILE OF cTnI DISTRIBUTION IN A REFERENCE POPULATION, HAS BEEN CONFIRMED THE DECISION THRESHOLD FOR [place] DIAGNOSIS. Performed By: #### C GURU MALONE, TSH #### [facility] [address] [place] [address] Dr. Boogie Weiss TSHon 09-02-2022 TSH 4.175 uIU/mL Critically high 0.358-3.740 [facility] Comment on above: Performed By: #### C GURU MALONE, TSH #### [facility] [address] [place] [address] Dr. Boogie Weiss XR CHEST 1 Von [...] ANDREW HARRY Date: 2022-09-02 18:42 Normal [facility] CBC AUTO DIFFon 12-26-2021 BASO # 0.0 103/ul Normal 0.0-0.1 [facility] Comment on above: Performed By: #### C BC #### [facility] [address] [place] [address] Dr. Boogie Weiss Basophils/100 WBC (Bld) 0.7 % Normal 0.2-2.0 [facility] Comment on above: Performed By: #### C BC #### [facility] [address] [place] [address] Dr. Boogie Weiss EO # 0.0 103/ul Normal 0.0-0.7 [facility] Comment on above: Performed By: #### C BC #### [facility] [address] [place] [address] Dr. Boogie Weiss Eosinophils/100 WBC (Bld) 0.4 % Critically low 0.9-7.0 [facility] Comment on above: Performed By: #### C BC #### [facility] [address] [place] [address] Dr. Boogie Weiss Erythrocyte distribution width (RBC) [Ratio] 13.7 % Normal 11.0-15.0 [facility] Comment on above: Performed By: #### C BC #### [facility] [address] [place] [address] Dr. Boogie Weiss Hematocrit (Bld) [Volume fraction] 41.1 % Normal 36.0-48.0 [facility] Comment on above: Performed By: #### C BC #### [facility] [address] [place] [address] Dr. Boogie Weiss Hemoglobin (Bld) [Mass/Vol] 13.2 g/dL Normal 12.0-16.0 [facility] Comment on above: Performed By: #### C BC #### [facility] [address] [place] [address] Dr. Boogie Weiss IG # 0.03 10e3/ul Normal 0.00-0.03 [facility] Comment on above: Performed By: #### C BC #### [facility] [address] [place] [address] Dr. Boogie Weiss IG % 0.6 % Critically high 0.0-0.[address] [facility] Comment on above: Performed By: #### C BC #### [facility] [address] [place] [address] Dr. Boogie Weiss LYMPH # 1.8 103/ul Normal 1.2-3.8 [facility] Comment on above: Performed By: #### C BC #### [facility] [address] [place] [address] Dr. Boogie Weiss Lymphocytes/100 WBC (Bld) 33.5 % Normal 20.5-60.0 [facility] Comment on above: Performed By: #### C BC #### [facility] [address] [place] [address] Dr. Boogie Weiss MANUAL DIFF REQ NO Normal [facility] Comment on above: Performed By: #### C BC #### [facility] [address] [place] [address] Dr. Boogie Weiss MCH (RBC) [Entitic mass] 27.8 pg Normal 26.7-34.0 [facility] Comment on above: Performed By: #### C BC #### [facility] [address] [place] [address] Dr. Boogie Weiss MCHC (RBC) [Mass/Vol] 32.1 g/dL Normal 29.9-35.2 [facility] Comment on above: Performed By: #### C BC #### [facility] [address] [place] [address] Dr. Boogie Weiss MCV (RBC) [Entitic vol] 86.5 fL Normal 81.0-99.0 [facility] Comment on above: Performed By: #### C BC #### [facility] [address] [place] [address] Dr. Boogie Weiss MONO # 0.3 103/ul Normal 0.3-0.8 [facility] Comment on above: Performed By: #### C BC #### [facility] [address] [place] [address] Dr. Boogie Weiss Monocytes/100 WBC (Bld) 5.2 % Normal 1.7-12.0 [facility] Comment on above: Performed By: #### C BC #### [facility] [address] [place] [address] Dr. Boogie Weiss NEUT # 3.2 103/ul Normal 1.4-6.5 [facility] Comment on above: Performed By: #### C BC #### [facility] [address] [place] [address] Dr. Boogie Weiss Neutrophils/100 WBC (Bld) 59.6 % Normal 43.0-75.0 [facility] Comment on above: Performed By: #### C BC #### [facility] [address] [place] [address] Dr. Boogie Weiss Platelet mean volume (Bld) [Entitic vol] 9.1 fL Critically low 9.5-13.5 [facility] Comment on above: Performed By: #### C BC #### [facility] [address] [place] [address] Dr. Boogie Weiss PLT 309 103/ul Normal 150-450 [facility] Comment on above: Performed By: #### C BC #### [facility] [address] [address] [address] Boogie Weiss RBC 4.75 106/ul Normal 4.20-5.40 [facility] Comment on above: Performed By: #### C BC #### [facility] [address] [place] [address] Dr. Boogie Weiss WBC 5.4 103/ul Normal 4.0-11.0 [facility] Comment on above: Performed By: #### C BC #### [facility] [address] [place] [address] Dr. Boogie Weiss FREE T3on 12-26-2021 FREE T3 2.78 pg/mlL Normal 2.18-3.98 [facility] Comment on above: Performed By: #### A 1C #### [facility] [address] [place] [address] Dr. Boogie Weiss GLYCOHEMOGLOBIN A1Con 2021 ADA RECOMMENDATION SEE BELOW Normal [facility] Comment on above: Result Comment: ADA RECOMMENDED LIMIT 4.0 - 6.0 ADA THERAPEUTIC TARGET < 7.0 ACTION SUGGESTED > 7.0 Performed By: #### A 1C #### [facility] [address] [place] [address] Dr. Boogie Weiss Glucose [Mass/Vol] 120 mg/dL Normal [facility] Comment on above: Performed By: #### A 1C #### [facility] [address] [place] [address] Dr. Boogie Weiss HbA1c (Bld) [Mass fraction] 5.8 % Normal 4.5-6.2 [facility] Comment on above: Performed By: #### A 1C #### [facility] [address] [place] [address] Dr. Boogie Weiss LIPID PROFILEon 12-26-2021 CHOL-HDL RATIO NORM SEE BELOW Normal [facility] Comment on above: Result Comment: 3.3 - 4.4 LOW RISK 4.4 - 7.1 AVERAGE RISK 7.1 - 11.0 MODERATE RISK >11.0 HIGH RISK Performed By: #### A 1C #### [facility] [address] [place], [place] [address] Dr. Boogie Weiss Cholesterol [Mass/Vol] 201 mg/dL Critically high <=200 [facility] Comment on above: Performed By: #### A 1C #### [facility] [address] [place], [place] [address] Dr. Boogie Weiss Cholesterol in HDL [Mass/Vol] 44 mg/dL Normal 40-60 [facility] Comment on above: Performed By: #### A 1C #### [facility] [address] [address] [address] Boogie Weiss Cholesterol in LDL [Mass/Vol] 121.0 mg/dL Normal [facility] Comment on above: Performed By: #### A 1C #### [facility] [address] [address] [address] Boogie Weiss Cholesterol.total/Cho lesterol in HDL [Mass ratio] 4.6 {ratio} Normal [facility] Comment on above: Performed By: #### A 1C #### [facility] [address] [address] [address] Boogie Weiss HDL NORMAL > or = 60 mg/dl - LOW CARDIOVASCULAR RISK <40 mg/dl - HIGH CARDIOVASCULAR RISK Normal [facility] Comment on above: Performed By: #### A 1C #### [facility] [address] [address] [address] Boogie Weiss LDL CALC NORMAL SEE BELOW Normal [facility] Comment on above: Result Comment: <100 mg/dl OPTIMAL 100 - 129 mg/dl NEAR OR ABOVE OPTIMAL 130 - 159 mg/dl BORDERLINE HIGH 160 - 189 mg/dl HIGH >190 mg/dl VERY HIGH Performed By: #### A 1C #### [facility] [address] [address] [address] Boogie Weiss Triglyceride [Mass/Vol] 180 mg/dL Critically high <=150 [facility] Comment on above: Performed By: #### A 1C #### [facility] [address] [place] [address] Dr. Boogie Weiss VLDL CALC 36.0 mg/dL Normal [facility] Comment on above: Performed By: #### A 1C #### [facility] [address] [place] [address] Dr. Boogie Weiss PROF 14(COMP METB)on 022 Albumin [Mass/Vol] 3.8 g/dL Normal 3.4-5.0 [facility] Comment on above: Performed By: #### A 1C #### [facility] [address] [place] [address] Dr. Boogie Weiss Albumin/Globulin [Mass ratio] 0.9 {ratio} Normal [facility] Comment on above: Performed By: #### A 1C #### [facility] [address] [place] [address] Dr. Boogie Weiss ALP [Catalytic activity/Vol] 101 U/L Normal 46-116 [facility] Comment on above: Performed By: #### A 1C #### [facility] [address] [place] [address] Dr. Boogie Weiss ALT [Catalytic activity/Vol] 34 U/L Normal 14-59 [facility] Comment on above: Performed By: #### A 1C #### [facility] [address] [place] [address] Dr. Boogie Weiss Anion gap [Moles/Vol] 13.2 mmol/L Normal [facility] Comment on above: Performed By: #### A 1C #### [facility] [address] [place] [address] Dr. Boogie Weiss AST [Catalytic activity/Vol] 14 U/L Critically low 15-37 [facility] Comment on above: Performed By: #### A 1C #### [facility] [address] [place] [address] Dr. Boogie Weiss Bilirubin [Mass/Vol] 0.2 mg/dL Normal 0.2-1.0 [facility] Comment on above: Performed By: #### A 1C #### [facility] [address] [address] [address] Boogie Weiss Calcium [Mass/Vol] 9.2 mg/dL Normal 8.5-10.1 [facility] Comment on above: Performed By: #### A 1C #### [facility] [address] [address] [address] Boogie Weiss Chloride [Moles/Vol] 104 mmol/L Normal 98-107 [facility] Comment on above: Performed By: #### A 1C #### [facility] [address] [address] [address] Boogie eWiss CO2 [Moles/Vol] 27.2 mmol/L Normal 21.0-32.0 [facility] Comment on above: Performed By: #### A 1C #### [facility] [address] [place] [address] Dr. Boogie Weiss Creatinine [Mass/Vol] 1.06 mg/dL Critically high 0.55-1.02 [facility] Comment on above: Performed By: #### A 1C #### [facility] [address] [place] [address] Dr. Boogie Weiss EGFR-AF BRAZILIAN >60 Normal >=60 [facility] Comment on above: Performed By: #### A 1C #### [facility] [address] [place] [address] Dr. Boogie Weiss EGFR-NON AF BRAZILIAN 55 mL/min/1.73m2 Critically low >=60 [facility] Comment on above: Performed By: #### A 1C #### [facility] [address] [address] [address] Boogie Weiss Globulin (S) [Mass/Vol] 4.1 g/dL Normal [facility] Comment on above: Performed By: #### A 1C #### [facility] [address] [place] [address] Dr. Boogie Weiss Glucose [Mass/Vol] 113 mg/dL Critically high 74-106 [facility] Comment on above: Performed By: #### A 1C #### [facility] [address] [address] [address] Boogie Weiss Potassium [Moles/Vol] 4.4 mmol/L Normal 3.5-5.1 [facility] Comment on above: Performed By: #### A 1C #### [facility] [address] [address] [address] Boogie Weiss Protein [Mass/Vol] 7.9 g/dL Normal 6.4-8.[address] [facility] Comment on above: Performed By: #### A 1C #### [facility] [address] [address] [address] Boogie Weiss Sodium [Moles/Vol] 140 mmol/L Normal 136-[address] [facility] Comment on above: Performed By: #### A 1C #### [facility] [address] [place] [address] Dr. Boogie Weiss Urea nitrogen [Mass/Vol] 16.0 mg/dL Normal 7.0-18.0 [facility] Comment on above: Performed By: #### A 1C #### [facility] [address] [place] [address] Dr. Boogie Weiss Urea nitrogen/Creatinine [Mass ratio] 15.1 mg/mg Normal [facility] Comment on above: Performed By: #### A 1C #### [facility] [address] [place] [address] Dr. Boogie Weiss T4on 12-26-2021 T4 [Mass/Vol] 7.50 ug/dL Normal 4.80-13.90 [facility] Comment on above: Performed By: #### A 1C #### [facility] [address] [address] [address] Boogie Weiss TSHon 12-26-2021 TSH 4.804 uIU/mL Critically high 0.358-3.[address] [facility] Comment on above: Performed By: #### A 1C #### [facility] [address] [place] [address] Dr. Boogie Weiss TSH RANGE SEE BELOW Normal [facility] Comment on above: Result Comment: <0.3 4 UIU/ml HYPERTHYROID 0.34-5.60 UIU/ml EUTHYROID >5.60 UIU/ml HYPOTHYROID Performed By: #### A 1C #### [facility] [address] [address] [address] Boogie Weiss VITAMIN D 25 OHon 12-26-2021 VIT D 25-OH 22.8 ng/mL Normal [facility] Comment on above: Performed By: #### A 1C #### [facility] [address] [address] [address] Boogie Weiss VIT D RANGES SEE BELOW Normal [facility] Comment on above: Result Comment: <20 ng/mL Vit D deficient 20 - <30 ng/mL Vit D insufficient 30 - 100 ng/mL Vit D sufficient >100 ng/mL Potential Toxicity Performed By: #### A 1C #### [facility] [address] [place] [address] Dr. Boogie Weiss Encounters Encounter Date Encounter Type Care Provider Facility Start: 09-06-2022 End: 09-07-[address] SÁNCHEZ SCHMID Facility:[facility] Start: 09-02-2022 End: 09-02-[address] SÁNCHEZ SCHMID Facility:[facility] Start: 07-17-2022 End: 07-17-2022 ambulatory GINNY CANDELARIA Facility:[facility] Start: 01-09-[address] SÁNCHEZ SCHMID Facility :[facility] Start: 01-01-2022 Encounter for genera l adult medical examination without abnormal findings DR SÁNCHEZ SCHMID [facility] Start: 12-26-2021 End: 12-27-[address] SÁNCHEZ SCHMID Facility:[facility] Start: 12-26-2021 End: 12-27-2021 Encounter for general adult medical examination without abnormal findings DR SÁNCHEZ SCHMID Facility:[facility] Start: 05-12-2017 End: 05-13-2017 Ambulatory DEFAULT PHYSICIAN Facility:[facility] Payers Date Payer Category Payer Unknown [id number] [id number] [id number] 1975 Unknown [id number] 2.16.84 [id number] 1975 Unknown [id number] 2.16.84 [id number] 1973 Unknown [id number] 2.16.84 [id number] 1973 Unknown [id number] 2.16.84 [id number] 1961 Self-pay 1961 Unknown [id number] Unknown Clinical Note 07-17-2022 Note Date & Type Note Facility 07-17-2022 Note PROCEDURE: XR WRIST RT MIN 3 V COMPARISON: None. HISTORY: Pain FINDINGS: BONES:No acute fracture or dislocation. Minimal degenerative changes with marginal osteophyte formation SOFT TISSUES:Negative. No visible soft tissue swelling. EFFUSION:None visible. OTHER: Negative. IMPRESSION: Minimal degenerative changes Electronically authenticated by: MARYLIN SPARROW Date: 2022-07-17 09:52 [facility] Summary Purpose Family History No Family History Records FoundNo Family History Records Found Advance Directives No Advanced Directives Records FoundNo Advanced Directives Records Found Additional Source Comments INFORMATION SOURCE (unrecogn ized section and content) DATE CREATED AUTHOR 02/03/2018 [facility] DATE CREATED AUTHOR AUTHOR'S ORGANIZ ATION 09/10/2022 [facility] FOR RECORDS PERTAINING TO PATIENTS WHO [...] BE BASED ON THE PRIMARY CLINICAL RECORDS. [employer] provides no warranty or guarantee of the accuracy or completeness of information in this document.
[2025-02-11] MEDS: ACETAMINOPHEN 500 MG TABLET 1000 MG PO (16:19)
== END 2025-02-11 17:43 | disposition home or self-care (01) ==
PROVIDERS: Emergency Provider Emergency Medicine; PCP Family Medicine
DX: S80.02XA Contusion of left knee, initial encounter (principal); S60.222A Contusion of left hand, initial encounter; M25.422 Effusion, left elbow; W01.0XXA Fall on same level from slipping, tripping and stumbling without subsequent striking against object, initial encounter
CPT/HCPCS: 73080; 73130; 73562; 99284

== ENCOUNTER 2025-03-14 15:46 | Outpatient (OUT) | payer OTHER, SELFPAY ==
--- NOTE | 2025-03-14 15:52 | MR_ITS ---
The [place] [id number] Patient Name: LAURYN SAMPSON MRN: [id number] date: 1975 Sex: F Assigned Patient Location: MRI Current Patient Location: Accession/Order Number: [id number] Exam Date: 03/15/2025 09:32 Report Date: 03/15/2025 09:39 At the request of: NON-STAFF PHYSICIAN Procedure: MR hand LT wo con MR hand LT wo con 03/14/2025 4:59 PM SIGNS AND SYMPTOMS: Pain in the left hand greatest on the palmar surface after fall PROTOCOL: Multiplanar multisequence MR images of the left hand without IV contrast COMPARISON: 02/11/2025 FINDINGS: Images are compromised by patient motion. Marrow signal: Within normal limits. No areas of marrow edema. Joint spaces: There is narrowing of the interphalangeal joints greatest distally. There is narrowing of the first metacarpophalangeal joint. Flexor tendons: The flexor tendons are intact and grossly normal in signal intensity. Extensor tendons: The extensor tendons are intact and grossly normal in signal intensity. Soft tissues: No significant soft tissue swelling is noted. Subcutaneous soft tissues: Within normal limits. The neurovascular bundles are within normal limits. MR/MR hand LT wo con IMPRESSION: Images are compromised by patient motion. The left hand is grossly intact without evidence of significant soft tissue edema or bone marrow edema. Mild degenerative changes are noted in the interphalangeal joints greatest in the distal interphalangeal joints and at the first metacarpophalangeal joint space. Impression dictated by: Miki Conner M.D. 03/15/2025 9:39 AM Dictation Location: [employer] Electronically authenticated by: [id number] Y Date: 03/15/2025 09:39
== END 2025-03-14 15:47 | disposition home or self-care (01) ==
LOC: MRI 15:47
PROVIDERS: PCP Family Medicine
DX: M79.642 Pain in left hand (principal); W19.XXXA Unspecified fall, initial encounter
CPT/HCPCS: 73218